=== PATIENT | male | born 1960 | race Caucasian/White ===

== ENCOUNTER 2023-09-26 09:38 | Day surgery (SDC) | payer OTHER, SELFPAY ==
[2023-09-24 14:31] VITALS: BMI 34.8
[2023-09-26] VITALS (7 sets, daily range): BP systolic 115–138; BP diastolic 63–84; PULSE 50–60; RESP 10–17; TEMP 36.2–36.7; O2SAT 94–97; BMI 34.8
[2023-09-26] MEDS: LACTATED RINGERS 1,000 ML 42 ML IV (10:09)
[2023-09-26] MEDS: ALBUTEROL/IPRATROPIUM 3 ML AMPUL INH (10:45)
--- NOTE | 2023-09-26 11:13 | P.HP_ITS ---
History of Present Illness History of Present Illness Date Patient Seen: 09/26/23 Time Patient Seen: 11:[address] [facility] [place] 63 y.o man here for elective umbilical hernia repair. No interval changes in health, please refer to H&P from May for further detail. [facility] Medical History GERD (gastroesophageal reflux disease) Asthma Surgical History Total knee replacement status (~2014) H/O shoulder surgery (~2002) Social History marital status: household members: spouse lives independently: Yes occupational status: previously employed Smoking Status: Never smoker alcohol intake: current substance use type: does not use Meds Home Medications and Allergies Home Medications Medication Instructions Recorded Confirmed Type albuterol sulfate 1 puff inhalation PRN PRN 05/31/23 09/24/23 History Shortness Of Breath fluticasone 250 mcg-salmeterol 50 1 inh inhalation BID 05/31/23 09/26/23 History mcg/dose blistr powdr for inhalation (Advair Diskus) Allergies Allergy/AdvReac Type Severity Reaction Status Date / Time MORPHINE AdvReac Mild Doesn't Uncoded 05/31/23 13:49 like it... feel out of body Exam Vital Signs (past 8 hours): - 09/26/23 09:46 Temperature 98.1 F Pulse Rate 60 Respiratory Rate 16 Blood Pressure 130/80 Pulse Oximetry 97 Oxygen Delivery Method Room Air Oxygen Delivery Method Room Air Narrative Exam Narrative: General adult man alert oriented no acute distress Abdomen soft reducible umbilical hernia Assessment & Plan Assessment and plan (1) Umbilical hernia: Qualifiers: Obstruction and gangrene presence: without obstruction or gangrene Qualified Code(s): K42.9 - Umbilical hernia without obstruction or gangrene Status: Acute Assessment & Plan narrative: 63-year-old man for an elective open hernia repair with mesh. Overview of the operation discussed. Operative risks including hemorrhage, infection, recurrence were discussed. Questions have been answered he is in agreement with this plan. He provides his written and verbal consent to proceed.
[2023-09-26] MEDS: CEFAZOLIN 2 GM/100 ML PREMIX 100 ML IV (11:30)
--- NOTE | 2023-09-26 11:51 | SUR.OPER ---
Supine on padded OR bed, head on pillow, arms secured on padded arm boards at <90 degrees abduction, legs uncrossed, safety belt at thigh, tape over blanket over lower legs.
[2023-09-26] MEDS: BUPIVACAINE 0.25% (PF) VIAL 30 ML INJ (11:56)
[2023-09-26] MEDS: ONDANSETRON 4 MG/2 ML INJ IV (13:07)
[2023-09-26] MEDS: OXYCODONE IR 5 MG TABLET PO (13:08)
--- NOTE | 2023-09-26 18:17 | P.OP_ITS ---
Operative Date/Time/Diagnoses Date of procedure: 09/26/23 Time of procedure: 18:18 Pre-op diagnosis: Umbilical hernia Post-op diagnosis: same Procedure & Clinicians Procedure: Open umbilical hernia repair. Same procedure as scheduled: Yes Indications: symptomatic reducible umbilical hernia. Surgeon: Bernabe Simmons Click Yes if Unassisted: Yes Operative Notes Findings: 3 cm fascial defect containing bowel Specimen(s): none sent Estimated Blood Loss (mL): 20 Procedure in detail: Patient was brought to the operating room placed supine on the table. Bilateral lower extremity compression devices were applied. General anesthesia was induced and they were intubated with an endotracheal tube. They received 2 g of Ancef prior to skin incision. They were prepped and draped in sterile fashion. A time-out was performed. A curvilinear incision was made inferior to the umbilicus. The subcutaneous tissues were divided. The umbilical hernia was identified and the hernia sac was dissected off the umbilical skin and circumferentially off of the fascia defect. The hernia sac was sharply opened and contained viable small bowel. Using blunt dissection I carefully carefully freed the hernia sac from beneath the fascia defect in order to accomodate the mesh. The fascia defect was 3 cm in maximal diameter. A Bard Ventralex ST hernia patch 6.4 cm was inserted beneath the fascia defect and above the peritoneum in a sublay position. The mesh was anchored in multiple locations using Ethibond suture to the fascia and the fascial defect was closed over the mesh. The umbilical skin was tacked to the subcutaneous tissues and then the remainder of the subcutaneous tissues were reapproximated using 3 0 Vicry,l skin closed with 4 0 Monocryl followed by the application of Dermabond and Steri- Strips. Sponge instrument count at the end of the operation was correct. Patient tolerated procedure well was extubated and transferred to postoperative care unit in stable condition. Complications: none Post-operative Condition: stable Disposition: same day surgery
== END 2023-09-26 13:25 | disposition home or self-care (01) ==
PROVIDERS: Referring Provider Surgery; Visit Provider Surgery
PROC: (CPT 49593; principal; 2023-09-26 11:15)
DX: K42.9 Umbilical hernia without obstruction or gangrene (principal)
CPT/HCPCS: 49593; J0690; J1100; J1885; J2405; J3010

== ENCOUNTER 2024-06-30 20:05 | Emergency (ER) | payer MEDICARE, OTHER, SELFPAY ==
[2024-06-30] VITALS (9 sets, daily range): BP systolic 114–144; BP diastolic 61–82; PULSE 70–90; RESP 16–29; TEMP 37.2; O2SAT 93–97; BMI 34.8
[2024-06-30 20:33] LABS: Appearance Urine UA CLEAR; Bilirubin Urine UA 1+ (NEGATIVE); Color Urine UA YELLOW; Glucose Urine UA NEGATIVE (Negative); Ketones Urine UA TRACE (NEGATIVE); Leukocyte Esterase Urine UA NEGATIVE (NEGATIVE); Nitrite Urine UA NEGATIVE (Negative); Occult Blood Urine UA 3+ (Negative); Protein Urine UA 1+ (Negative); Specific Gravity Urine UA 1.015 (1.000-1.035); pH Urine UA 5.5 (4.5-8.0)
[2024-06-30 20:41] LABS: Bacteria Urine Few (2-10); Culture Indicated Urine Cult Not Indicated; Ictotest Urine Negative (Negative); Mucus Urine 1+ (Negative); RBC Urine 5-10/HPF (0-5/HPF); Squamous Epithelial Cell Urine 0-1 /HPF (0-5/HPF); Urine Volume 10mL (spun); WBC Urine 0-1/HPF (0-5/HPF)
--- NOTE | 2024-06-30 20:41 | DI.RAD.S_ITS ---
PROCEDURE: XR CHEST 1V INDICATIONS: DRY COUGH, FEVERS, NIGHT SWEATS X 1 WK TECHNIQUE: One view of the chest was acquired. COMPARISON: None. FINDINGS: Surgical changes and devices: None. Lungs and pleura: Lungs are clear. Right-sided small to moderate subpulmonic pleural effusion but no pneumothorax. Mediastinum: Mediastinal contours appear normal. Heart size is normal. Bones and chest wall: No suspicious bony lesions. Overlying soft tissues appear unremarkable. IMPRESSION: Blunting of the costophrenic sulcus on the right is likely due to a subpulmonic small to moderate pleural effusion. No pneumonia found. No adenopathy seen. Dictated by: Kale Baker M.D. on 06/30/2024 at 21:11 Approved by: Kale Baker M.D. on 06/30/2024 at 21:12
--- NOTE | 2024-06-30 20:41 | EKG_ITS ---
[address] [address] Test Date: 2024-06-30 Pat Name: Kobe Kerr Department: [facility] Room: Gender: Male Card Boxer: SHADY : 1960 Requested By: Order Number: [id number] Reading MD: Garcia Jefferson MD Measurements Intervals [place] Rate: 79 P: 57 DE: 154 QRS: -42 QRSD: 100 T: 32 QT: 372 QTc: 426 Interpretive Statements Normal sinus rhythm Left axis deviation Electronically Signed On 07-01-2024 7:26:14 PDT by Garcia Jefferson MD
--- NOTE | 2024-06-30 20:51 | ED_ITS ---
HPI - Male Genitourinary General Chief complaint: Urogenital-Male Stated complaint: UTI, fever Time Seen by Provider: 06/30/24 20:09 Source: patient Mode of arrival: Ambulatory History of Present Illness HPI Narrative: 64-year-old male with no reported past medical history presents for 1 week of nightly fevers and urinary frequency. Four days ago patient presented to his primary care doctor's office for an evaluation. He states that his doctor did a physical exam including a prostate exam and was told that everything seemed to be normal. Due to his urinary frequency it was presumed that he had a urinary tract infection and he was discharged on Macrobid and Pyridium. Patient states that he completed the Pyridium and is still on Macrobid, but does not really feel much better. He says that he still wakes up nightly with fevers and sweats in his still urinating frequently. He called his doctor's office today and they recommended he come to the ER for additional evaluation. Patient states that during the day he has no pain, and does not feel poorly. Related Data Home Medications Medication Instructions Recorded Confirmed albuterol sulfate 1 puff inhalation PRN PRN 05/31/23 10/04/23 Shortness Of Breath fluticasone 250 mcg-salmeterol 50 1 inh inhalation BID 05/31/23 10/04/23 mcg/dose blistr powdr for inhalation (Advair Diskus) Previous Rx's Medication Instructions Recorded acetaminophen 325 mg capsule 650 mg (2 x 325 mg) PO QID PRN 09/26/23 (Tylenol) pain #60 caps docusate sodium 100 mg capsule 100 mg PO BID #30 caps 09/26/23 (Colace) ibuprofen 200 mg tablet 400 mg (2 x 200 mg) PO Q6H #60 tabs 09/26/23 Allergies Allergy/AdvReac Type Severity Reaction Status Date / Time MORPHINE AdvReac Mild Doesn't Uncoded 06/30/24 20:13 like it... feel out of body Patient History Medical History GERD (gastroesophageal reflux disease) Asthma Surgical History Total knee replacement status (~2014) H/O shoulder surgery (~2002) Social History marital status: household members: spouse lives independently: Yes occupational status: previously employed Smoking Status: Never smoker alcohol intake: current substance use type: does not use Smoking Status: Never smoker alcohol intake frequency: 0-2 drinks per day Substance Use Type: does not use Exam Initial Vital Signs Initial Vital Signs: Vital Signs Temperature 99.0 F 06/30/24 20:07 Pulse Rate 90 06/30/24 20:07 Respiratory Rate 16 06/30/24 20:07 Blood Pressure 131/82 06/30/24 20:07 Pulse Oximetry 96 06/30/24 20:07 Oxygen Delivery Method Room Air 06/30/24 20:07 Const: Awake, alert, no acute distress, nontoxic appearing Cardiac: regular rate, regular rhythm RESP: unlabored, clear bilaterally, no wheezing GI: Soft, nontender, nondistended, no rebound, no guarding MSK: Atraumatic, full range of motion, pulses equal Skin: Warm, Dry, intact, no rashes Neuro: AO x3, CN II-XII grossly intact, moves all extremities Course Orders Ordered: ED Orders 06/30/24 22:29 CT abdomen pelvis w con Stat 07/01/24 00:07 CT chest w con Stat 07/01/24 01:09 Monotest Stat Discontinued Medications Sodium Chloride (Normal Saline 0.9%) 1,000 mls @ 1,000 mls/hr IV BOLUS ONE Stop: 06/30/24 21:39 Last Infusion: 06/30/24 22:14 Dose: Infused Documented By: Admin: 06/30/24 21:07 Dose: 1,000 mls/hr Documented By: KATELIN Sodium Chloride (Normal Saline 0.9%) 1,000 mls @ 1,000 mls/hr IV BOLUS ONE Stop: 07/01/24 01:06 Last Infusion: 07/01/24 01:23 Dose: Infused Documented By: Admin: 07/01/24 00:12 Dose: 1,000 mls/hr Documented By: MIKHAIL Vital Signs Vital signs: Vital Signs - 8 hr 06/30/24 23:00 06/30/24 23:30 07/01/24 00:30 Pulse Rate 72 75 72 Respiratory Rate 24 28 H 18 Blood Pressure Pulse Oximetry 97 95 98 Oxygen Delivery Method 07/01/24 01:00 07/01/24 01:13 07/01/24 01:13 Pulse Rate 74 80 Respiratory Rate 18 17 Blood Pressure 121/75 Pulse Oximetry 97 96 Oxygen Delivery Method Room Air MDM - Male Genitourinary Lab Data 06/30/24 21:00 06/30/24 21:00 Labs: Lab Results 06/30/24 06/30/24 06/30/24 Range/Units 20:11 21:00 21:16 WBC 8.1 (4.5-11.0) X10^3/uL RBC 4.58 (4.5-5.9) X10^6/uL Hgb 13.7 (13.5-17.5) g/dL Hct 39.7 L (41-53) % MCV 86.7 (80-100) fL MCH 29.9 (26-34) PG MCHC 34.5 (30-36) % RDW 13.1 (11.6-14.8) % Plt Count 134 L (150-400) X10^3/uL Neut % (Auto) 92.0 H (50-75) % Lymph % (Auto) 4.4 L (25-40) % [place] % (Auto) 3.0 (3-14) % Eos % (Auto) 0.4 L (2-4) % Baso % (Auto) 0.2 (0-2) % Neut # (Auto) 7400 H (5749-0887) /uL Lymph # (Auto) 400 L (0118-7735) /uL [place] # (Auto) 200 (0-900) /uL Eos # (Auto) 0 (0-450) /uL Baso # (Auto) 0 (0-100) /uL PT 15.4 H (9.4-12.5) SECONDS INR 1.3 (0.9-1.3) Sodium 130 L (137-145) mmol/L Potassium 4.3 (3.4-5.1) mmol/L Chloride 94 L (98-107) mmol/L Carbon Dioxide 30 (22-32) mmol/L BUN 32 H (9-20) mg/dL Creatinine 1.29 H (0.66-1.25) mg/dL Estimated GFR > 60 (>60) mL/min BUN/Creatinine Ratio 24.8 H (6-22) Glucose 124 H (80-110) mg/dL Lactate 1.4 (0.7-2.1) mmol/L Calcium 8.6 (8.4-10.2) mg/dL Total Bilirubin 1.3 (0.2-1.3) mg/dL AST 375 H (17-59) IU/L ALT 396 H (<50) IU/L Alkaline Phosphatase 131 H (38-126) U/L Total Creatine Kinase 165 (55-170) U/L Troponin I < 0.012 (0.01-0.034) ng/mL NT-Pro-B Natriuret Pep 198 H (<125) pg/mL Total Protein 7.0 (6.3-8.2) g/dL Albumin 3.4 L (3.5-5.0) g/dL Globulin 3.6 (1.7-4.1) g/dL Albumin/Globulin Ratio 0.9 L (1.0-2.8) Procalcitonin 62.8 H (<0.5) ng/mL Urine Color Yellow Urine Appearance Clear Urine pH 5.5 (4.5-8.0) Ur Specific [place] 1.015 (1.000-1.035) Urine Protein 1+ H (Negative) Urine Glucose (UA) Negative (Negative) g/dL Urine Ketones Trace H (NEGATIVE) Urine Occult Blood 3+ H (Negative) Urine Nitrate Negative (Negative) Urine Bilirubin 1+ H (NEGATIVE) Ur Bilirubin Confirm Negative (Negative) Urine Urobilinogen 2.0 H (0.2) E.U./dL Ur Leukocyte Esterase Negative (NEGATIVE) Urine RBC 5-10/hpf H (0-5/HPF) Urine WBC 0-1/hpf (0-5/HPF) Ur Squamous Epith Cells 0-1 /hpf (0-5/HPF) Urine Bacteria Few (2-10) H (None) Urine Mucus 1+ H (Negative) Ur Culture Indicated? Cult not indicated Vol Urine Centrifuged 10ml (spun) Chlamy pneumoniae PCR Not detected (Not Detect) Adenovirus (PCR) Not detected (Not Detect) B.parapertussis DNA PCR Not detected (Not Detecte) Coronavirus OC43 (PCR) Not detected (Not Detect) Coronavirus HKU1 (PCR) Not detected (Not Detect) Coronavirus 229E (PCR) Not detected (Not Detect) SARS-CoV-2 (PCR) Not detected (Not Detecte) Coronavirus NL63 (PCR) Not detected (Not Detect) Monoscreen Negative (Negative) Human Metapneumovir PCR Not detected (Not Detect) Influenza Type A (PCR) Not detected (Not Detect) Influenza Type B (PCR) Not detected (Not Detect) M. pneumoniae (PCR) Not detected (Not Detect) Parainfluenza 1 (PCR) Not detected (Not Detect) Parainfluenza 2 (PCR) Not detected (Not Detect) Parainfluenza 3 (PCR) Not detected (Not Detect) Parainfluenza 4 (PCR) Not detected (Not Detect) RSV (PCR) Not detected (Not Detect) Entero/Rhino (PCR) Not detected (Not Detect) Imaging Data CT scan - abdomen/pelvis: Radiologist's Impression: PROCEDURE: CT ABDOMEN PELVIS W CON INDICATIONS: elevated liver enzymes, suspected sepsis TECHNIQUE: After the administration of intravenous contrast, axial sections acquired from the lung bases to the pubic symphysis. Coronal and sagittal reformats were performed. For radiation dose reduction, the following was used: automated exposure control, adjustment of mA and/or kV according to patient size. COMPARISON: None. FINDINGS: Image quality: Diagnostic. Lower Chest: No significant findings. ABDOMEN: Liver: No solid mass. Mildly enlarged at 19.6 cm craniocaudad Gallbladder: No radiopaque gallstones or wall thickening. Biliary ducts: No biliary dilation. Pancreas: No ductal dilation. Spleen: Size is above normal limits measuring up to 13.4 cm craniocaudad. Adrenal Glands: No adrenal nodules. Kidneys and Ureters: No hydronephrosis. No solid mass. No complex renal cystic lesion which requires follow up. Stomach and Bowel: Normal colonic caliber, without significant wall thickening. Peritoneum: No abnormal intraperitoneal fluid. No free air. Ventral Wall: No significant ventral hernia. Abdominal Nodes: No retroperitoneal or mesenteric adenopathy by size criteria. Vessels: Aorta and inferior vena cava are normal in size. PELVIS: Pelvic Organs: Unremarkable. Bladder: No bladder wall thickening, accounting for underdistention. Pelvic Nodes: No enlarged lymph nodes. Miscellaneous: No inguinal hernias are seen. Normal appendix found right lower quadrant. Bones: No aggressive osseous abnormality. IMPRESSION: Mild hepatosplenomegaly. No sign of focal infection or underlying neoplasm. Source of sepsis syndrome is not identified. Dictated by: Kale Baker M.D. on 06/30/2024 at 23:48 Approved by: Kale Baker M.D. on 06/30/2024 at 23:52 CT scan - chest: Radiologist's Impression: PROCEDURE: CT CHEST W CON INDICATIONS: PERSISTENT COUGH, ELEVATED PROCAL, NEG CXR TECHNIQUE: After the administration of intravenous contrast, 5 mm thick sections acquired from the pulmonary apices to the posterior costophrenic angles. 1 mm axial lung, 5 mm thick coronal and sagittal reformats and 7 mm axial MIP were acquired. For radiation dose reduction, the following was used: automated exposure control, adjustment of mA and/or kV according to patient size. COMPARISON: [facility], CR, XR CHEST 1V, 06/30/2024, 20:47. FINDINGS: Image quality: Diagnostic. Lower Neck: No enlarged lymph nodes. Thyroid: No thyroid nodules which require sonographic follow up, per consensus guidelines. Axillae: No enlarged lymph nodes. Chest Wall: Unremarkable. Bones: Unremarkable. Lungs and Pleura: No pneumothorax or pleural effusions. No consolidation or suspicious nodules. There is blunting of the right lateral costophrenic sulcus with the curvature of the diaphragm directed cephalad and likely associated with an adhesion at the lateral lower border of the right pleural surface. Heart: Heart size is normal. No pericardial effusion. Thoracic Vessels: The aorta and pulmonary arteries demonstrate normal size. Mediastinum and Skye: No enlarged lymph nodes. Esophagus: No wall thickening. No hiatal hernia. Upper Abdomen: Visualized upper abdomen solid organs and bowel loops appear normal. IMPRESSION: No pneumonia or neoplasm found. Presumed adhesion between the lateral border of the right hemidiaphragm and the inter margin of the right lower lateral pleural space causing tenting of the diaphragm in that area cephalad to mild degree. A pleural adhesion can induce recurrent coughing. Dictated by: Kale Baker M.D. on 07/01/2024 at 0:35 Approved by: Kale Baker M.D. on 07/01/2024 at 0:37 MDM Narrative Medical decision making narrative: Well-appearing patient with 1 week of persistent symptoms despite being treated with Macrobid. He is concerned that he may continue to have a urinary tract infection and does not want it to spread to his kidneys. Hemodynamically stable, no fever on presentation, however patient states he did take ibuprofen approximately 3 hours prior to arrival. Laboratory work and imaging ordered. Laboratory work reviewed. WBC count 8.1, hemoglobin 13.7, platelet count 134, sodium 130, potassium 4.3, chloride 94, creatinine 1.29, T bili 1.3, AST 375, ALT 396, alk phos 131. Troponin undetectable, procalcitonin 62.8. Urinalysis without leukocyte esterase, no WBCs, no nitrites. Despite elevated procal no obvious source of potential infection. Patient reports a chronic cough, and CXR shows blunting of R costophrenic angle. With elevated liver enzymes and no obvious source of infection a CT of the abdomen and pelvis was ordered. CT of the abdomen and pelvis shows mild hepatosplenomegaly, uncertain etiology. Patient denies frequent alcohol use. Still no obvious source of greatly elevated procalcitonin. To assess for other occult infection a CT of chest was ordered. CT chest showed no neoplasm or pneumonia. Note made of presumed adhesion between lateral border of right hemidiaphragm and right lower lateral pleural space. When this was mentioned to the patient he states that many years ago he did have to have surgery to adhere his lung due to pneumothorax. This is likely the cause of patient's cough. All lab and imaging findings were discussed extensively with the patient. No source of patient's recurrent fevers or urinary frequency found. Blood cultures has been drawn and sent to the lab for analysis. Patient was also informed of his elevated liver enzymes. Patient is otherwise completely well appearing and no other indication for admission. Patient states that he has an appointment this week with his pcp to discuss his symptoms. A copy of CT reports and laboratory work results was printed out and given to the patient since he gets his care through [facility]. ED return precautions discussed extensively with patient. Discharge Plan Departure Patient Disposition: Home Clinical Impression: Fever of unknown origin, Elevated liver enzymes Instructions: DI for Fever (Symptom) -- Adult Activity Restrictions/Additional Instructions: Your laboratory work today showed that you have new elevation in your liver enzymes, specifically your AST and ALT. Otherwise there was no sign of infection in your chest, abdomen, or pelvis. There does not appear to be a urinary tract infection or kidney infection. Please make sure that you follow up with your primary care doctor. With this elevation in your liver enzymes make sure to avoid things that may injure your liver including alcohol and Tylenol. Make sure to stay hydrated, drink plenty of fluids. Prescriptions: No Action fluticasone propion-salmeterol [Advair Diskus] 250-50 mcg/dose blister with device 1 inh inhalation BID albuterol sulfate 1 puff inhalation PRN PRN (Reason: Shortness Of Breath) ibuprofen 200 mg tablet 400 mg PO Q6H Qty: 60 0RF docusate sodium [Colace] 100 mg capsule 100 mg PO BID Qty: 30 0RF acetaminophen [Tylenol] 325 mg capsule 650 mg PO QID PRN (Reason: pain) Qty: 60 0RF Referrals: [facility] [Primary Care Provider] - Stand Alone Forms: Patient Portal/API
[2024-06-30] MEDS: SODIUM CHLORIDE 0.9% 1,000 ML 1000 ML IV (21:07)
[2024-06-30 21:22] LABS: Add Manual Diff / Slide Review NO; Basophils Absolute Auto 0 /uL (0-100); Basophils Percent Auto 0.2 % (0-2); Eosinophils Absolute Auto 0 /uL (0-450); Eosinophils Percent Auto 0.4 % (2-4); Hematocrit 39.7 % (41-53); Hemoglobin 13.7 g/dL (13.5-17.5); Lymphocytes Absolute Auto 400 /uL (1100-4500); Lymphocytes Percent Auto 4.4 % (25-40); Mean Corpuscular HGB Conc 34.5 % (30-36); Mean Corpuscular Hemoglobin 29.9 PG (26-34); Mean Corpuscular Volume 86.7 fL (80-100); Monocytes Absolute Auto 200 /uL (0-900); Neutrophils Absolute Auto 7400 /uL (1500-7000); Platelet Count 134 X10^3/uL (150-400); Red Blood Cell Count 4.58 X10^6/uL (4.5-5.9); Red Cell Distribution Width 13.1 % (11.6-14.8); White Blood Cell Count 8.1 X10^3/uL (4.5-11.0)
[2024-06-30 21:27] LABS: INR 1.3 (0.9-1.3); Prothrombin Time 15.4 SECONDS (9.4-12.5)
[2024-06-30 21:33] LABS: Alanine Aminotransferase 396 IU/L (<50); Albumin 3.4 g/dL (3.5-5.0); Albumin Globulin Ratio 0.9 (1.0-2.8); Alkaline Phosphatase 131 U/L (38-126); Aspartate Aminotransferase 375 IU/L (17-59); BUN Creatinine Ratio 24.8 (6-22); Bilirubin Total 1.3 mg/dL (0.2-1.3); Blood Urea Nitrogen 32 mg/dL (9-20); Calcium 8.6 mg/dL (8.4-10.2); Carbon Dioxide 30 mmol/L (22-32); Chloride 94 mmol/L (98-107); Creatine Kinase 165 U/L (55-170); Estimated Glomerular Filt Rate > 60 mL/min (>60); Globulin 3.6 g/dL (1.7-4.1); Glucose 124 mg/dL (80-110); HEMOLYSIS < 15 (0-50); Lactate (Lactic Acid) 1.4 mmol/L (0.7-2.1); Potassium 4.3 mmol/L (3.4-5.1); Sodium 130 mmol/L (137-145)
[2024-06-30 21:44] LABS: NT-proBNP (BNP-Adult 18+) 198 pg/mL (<125); Troponin I < 0.012 ng/mL (0.01-0.034)
[2024-06-30 21:49] LABS: Procalcitonin 62.8 ng/mL (<0.5)
[2024-06-30 22:17] LABS: Adenovirus Not Detected (Not Detect); B. parapertussis Not Detected (Not Detecte); Bordetella pertussis Not Detected (Not Detect); Chlamydophila pneumoniae Not Detected (Not Detect); Coronavirus 229E Not Detected (Not Detect); Coronavirus HKU1 Not Detected (Not Detect); Coronavirus NL 63 Not Detected (Not Detect); Coronavirus OC43 Not Detected (Not Detect); Human Metapneumovirus Not Detected (Not Detect); Human Rhinovirus/Enterovirus Not Detected (Not Detect); Influenza A Not Detected (Not Detect); Influenza B Not Detected (Not Detect); Mycoplasma pneumoniae Not Detected (Not Detect); Parainfluenza Virus 1 Not Detected (Not Detect); Parainfluenza Virus 2 Not Detected (Not Detect); Parainfluenza Virus 3 Not Detected (Not Detect); Parainfluenza Virus 4 Not Detected (Not Detect); Respiratory Syncytial Virus Not Detected (Not Detect); SARS- CoV-2 Not Detected (Not Detecte)
--- NOTE | 2024-06-30 22:29 | DI.CT.S_ITS ---
PROCEDURE: CT ABDOMEN PELVIS W CON INDICATIONS: elevated liver enzymes, suspected sepsis TECHNIQUE: After the administration of intravenous contrast, axial sections acquired from the lung bases to the pubic symphysis. Coronal and sagittal reformats were performed. For radiation dose reduction, the following was used: automated exposure control, adjustment of mA and/or kV according to patient size. COMPARISON: None. FINDINGS: Image quality: Diagnostic. Lower Chest: No significant findings. ABDOMEN: Liver: No solid mass. Mildly enlarged at 19.6 cm craniocaudad Gallbladder: No radiopaque gallstones or wall thickening. Biliary ducts: No biliary dilation. Pancreas: No ductal dilation. Spleen: Size is above normal limits measuring up to 13.4 cm craniocaudad. Adrenal Glands: No adrenal nodules. Kidneys and Ureters: No hydronephrosis. No solid mass. No complex renal cystic lesion which requires follow up. Stomach and Bowel: Normal colonic caliber, without significant wall thickening. Peritoneum: No abnormal intraperitoneal fluid. No free air. Ventral Wall: No significant ventral hernia. Abdominal Nodes: No retroperitoneal or mesenteric adenopathy by size criteria. Vessels: Aorta and inferior vena cava are normal in size. PELVIS: Pelvic Organs: Unremarkable. Bladder: No bladder wall thickening, accounting for underdistention. Pelvic Nodes: No enlarged lymph nodes. Miscellaneous: No inguinal hernias are seen. Normal appendix found right lower quadrant. Bones: No aggressive osseous abnormality. IMPRESSION: Mild hepatosplenomegaly. No sign of focal infection or underlying neoplasm. Source of sepsis syndrome is not identified. Dictated by: Kale Baker M.D. on 06/30/2024 at 23:48 Approved by: Kale Baker M.D. on 06/30/2024 at 23:52
--- NOTE | 2024-07-01 00:07 | DI.CT.S_ITS ---
PROCEDURE: CT CHEST W CON INDICATIONS: PERSISTENT COUGH, ELEVATED PROCAL, NEG CXR TECHNIQUE: After the administration of intravenous contrast, 5 mm thick sections acquired from the pulmonary apices to the posterior costophrenic angles. 1 mm axial lung, 5 mm thick coronal and sagittal reformats and 7 mm axial MIP were acquired. For radiation dose reduction, the following was used: automated exposure control, adjustment of mA and/or kV according to patient size. COMPARISON: [facility], CR, XR CHEST 1V, 06/30/2024, 20:47. FINDINGS: Image quality: Diagnostic. Lower Neck: No enlarged lymph nodes. Thyroid: No thyroid nodules which require sonographic follow up, per consensus guidelines. Axillae: No enlarged lymph nodes. Chest Wall: Unremarkable. Bones: Unremarkable. Lungs and Pleura: No pneumothorax or pleural effusions. No consolidation or suspicious nodules. There is blunting of the right lateral costophrenic sulcus with the curvature of the diaphragm directed cephalad and likely associated with an adhesion at the lateral lower border of the right pleural surface. Heart: Heart size is normal. No pericardial effusion. Thoracic Vessels: The aorta and pulmonary arteries demonstrate normal size. Mediastinum and [place]: No enlarged lymph nodes. Esophagus: No wall thickening. No hiatal hernia. Upper Abdomen: Visualized upper abdomen solid organs and bowel loops appear normal. IMPRESSION: No pneumonia or neoplasm found. Presumed adhesion between the lateral border of the right hemidiaphragm and the inter margin of the right lower lateral pleural space causing tenting of the diaphragm in that area cephalad to mild degree. A pleural adhesion can induce recurrent coughing. Dictated by: Kale Baker M.D. on 07/01/2024 at 0:35 Approved by: Kale Baker M.D. on 07/01/2024 at 0:37
[2024-07-01] MEDS: SODIUM CHLORIDE 0.9% 1,000 ML 1000 ML IV (00:12)
[2024-07-01 00:30] VITALS: PULSE 72; RESP 18; O2SAT 98
[2024-07-01 01:00] VITALS: PULSE 74; RESP 18; O2SAT 97
[2024-07-01 01:13] VITALS: BP 121/75; PULSE 80; RESP 17; O2SAT 96
[2024-07-01 01:21] LABS: Monotest Negative (Negative)
--- NOTE | 2024-07-01 20:29 | PC.NURSE ---
received positive blood cultures for patient. Dr. Coates aware. states to call patient to see if he is still having fevers and if so to come back in. called patient, denied fevers, reports feeling alittle better, discussed with Dr. Coates patient's reports and she recommends pt be re evaluated within the next 12-24hrs. Pt states understanding and agrees to return tomorrow for reassessment.
== END 2024-07-01 01:25 | disposition home or self-care (01) ==
PROVIDERS: Emergency Provider Emergency Medicine
DX: R50.9 Fever, unspecified (principal); R74.8 Abnormal levels of other serum enzymes; R79.89 Other specified abnormal findings of blood chemistry; R07.9 Chest pain, unspecified; Z11.52 Encounter for screening for COVID-19
CPT/HCPCS: 36415; 51798; 71045; 71260; 74177; 80053; 81001; 82550; 83605; 83880; 84145; 84484; 85025; 85610; 86318; 87040; 87077; 87186; 87633; 93005; 93010; 96360; 96361; 99284; Q9967

== ENCOUNTER 2024-07-02 10:45 | Emergency (ER) | payer MEDICARE, OTHER, SELFPAY ==
[2024-07-02] VITALS (10 sets, daily range): BP systolic 111–135; BP diastolic 64–80; PULSE 62–80; RESP 14; TEMP 37.3–37.6; O2SAT 94–98; BMI 35.1
--- NOTE | 2024-07-02 10:54 | ED_ITS ---
HPI - Recheck/Abnormal Lab/Rx General Chief Complaint: Recheck/Abnormal Lab/Rx Stated Complaint: abnormal lab Time Seen by Provider: 07/02/24 10:53 Source: patient Mode of arrival: Ambulatory History of Present Illness HPI narrative: 64-year-old male here for recheck after being called in regarding positive blood culture results from recent visit in ED 2 days ago here. Patient recently seen by primary care provider, possible urinary infection, taking Macrobid oral antibiotic day 3, seen 2 days ago feeling feverish, workup included CT scanning reportedly negative, still taking Macrobid antibiotic from clinic. Subsequently blood culture from ED visit is growing Gram-negative rods, patient was informed yesterday but did not want to come last night, here for further evaluation this morning. No fevers or chills. No sweats. Denies weakness. Denies pain on urination. He denies shortness of breath or chest pain. He also denies abdominal discomfort, nausea, diarrhea. He denies headache neck pain photophobia symptoms. Related Data Home Medications Medication Instructions Recorded Confirmed albuterol sulfate 1 puff inhalation PRN PRN 05/31/23 10/04/23 Shortness Of Breath fluticasone 250 mcg-salmeterol 50 1 inh inhalation BID 05/31/23 10/04/23 mcg/dose blistr powdr for inhalation (Advair Diskus) Previous Rx's Medication Instructions Recorded acetaminophen 325 mg capsule 650 mg (2 x 325 mg) PO QID PRN 09/26/23 (Tylenol) pain #60 caps docusate sodium 100 mg capsule 100 mg PO BID #30 caps 09/26/23 (Colace) ibuprofen 200 mg tablet 400 mg (2 x 200 mg) PO Q6H #60 tabs 09/26/23 cefdinir 300 mg capsule 300 mg PO BID 10 days #20 caps 07/02/24 Allergies Allergy/AdvReac Type Severity Reaction Status Date / Time morphine Allergy Verified 07/02/24 10:49 Review of Systems Review of Systems Narrative: see HPI Patient History Medical History GERD (gastroesophageal reflux disease) Asthma Surgical History Total knee replacement status (~2014) H/O shoulder surgery (~2002) Social History marital status: household members: spouse lives independently: Yes occupational status: previously employed Smoking Status: Never smoker alcohol intake: current substance use type: does not use Smoking Status: Never smoker alcohol intake frequency: holidays/special occasions only Substance Use Type: does not use Exam Narrative Exam Narrative: GENERAL: Well-developed patient, in mild distress. HEAD: Atraumatic. Normocephalic. EYES: Pupils equal round and reactive. Extraocular motions intact. No scleral icterus. No injection or drainage. ENT: Nose without bleeding, purulent drainage. Throat without erythema, tonsillar hypertrophy or exudate. Airway patent. NECK: Trachea midline. Non tender CARDIOVASCULAR: Regular rate and rhythm without murmurs, gallops, or rubs. RESPIRATORY: Clear to auscultation. Breath sounds equal bilaterally. No wheezes, rales, or rhonchi. GASTROINTESTINAL: Abdomen soft, non-tender, nondistended. EXTREMITIES: No edema or joint tenderness. BACK: Nontender without deformity or crepitance. No flank tenderness. NEURO: AOx3. Grossly nonfocal motor exam SKIN: No rash or erythema of visible areas Initial Vital Signs Initial Vital Signs: Vital Signs Temperature 99.1 F 07/02/24 10:49 Pulse Rate 80 07/02/24 10:49 Respiratory Rate 14 07/02/24 10:49 Blood Pressure 134/75 07/02/24 10:49 Pulse Oximetry 98 07/02/24 10:49 Oxygen Delivery Method Room Air 07/02/24 10:49 Course Orders Ordered: ED Orders 07/02/24 11:25 CBC Auto Diff [Complete Blood Count AUTO DIFF] Stat CMP [Comprehensive Metabolic Panel] Stat Lactate (Lactic Acid) Stat 07/02/24 12:40 Urinalysis and Microscopic Stat Discontinued Medications Ceftriaxone Sodium 1,000 mg/ (Sodium Chloride) 100 mls @ 200 mls/hr IV NOW ONE Stop: 07/02/24 10:56 Last Infusion: 07/02/24 12:13 Dose: Infused Documented By: Admin: 07/02/24 11:44 Dose: 200 mls/hr Documented By: CTS Sodium Chloride (Normal Saline 0.9%) 1,000 mls @ 1,000 mls/hr IV BOLUS ONE Stop: 07/02/24 11:54 Last Infusion: 07/02/24 12:55 Dose: Infused Documented By: Admin: 07/02/24 11:44 Dose: 1,000 mls/hr Documented By: CTS Vital Signs Vital signs: Vital Signs - 8 hr 07/02/24 11:38 07/02/24 12:00 07/02/24 12:14 Temperature Pulse Rate 70 64 69 Blood Pressure Pulse Oximetry 97 96 Oxygen Delivery Method 07/02/24 12:14 07/02/24 12:30 07/02/24 12:31 Temperature Pulse Rate 62 Blood Pressure 112/70 111/64 Pulse Oximetry 95 Oxygen Delivery Method 07/02/24 12:31 07/02/24 13:00 07/02/24 13:00 Temperature Pulse Rate 64 62 Blood Pressure 135/80 Pulse Oximetry 95 94 Oxygen Delivery Method 07/02/24 13:30 07/02/24 13:30 07/02/24 14:00 Temperature Pulse Rate 74 78 Blood Pressure 131/79 Pulse Oximetry 96 96 Oxygen Delivery Method Room Air Room Air 07/02/24 14:00 07/02/24 14:30 Temperature 99.6 F Pulse Rate Blood Pressure 133/78 Pulse Oximetry Oxygen Delivery Method MDM - Recheck/Abnormal Lab/Rx Lab Data Attestation: I reviewed the patient's lab results. 07/02/24 11:25 07/02/24 11:25 Labs: Lab Results 07/02/24 07/02/24 Range/Units 11:25 12:40 WBC 9.0 (4.5-11.0) X10^3/uL RBC 4.31 L (4.5-5.9) X10^6/uL Hgb 12.8 L (13.5-17.5) g/dL Hct 37.9 L (41-53) % MCV 87.9 (80-100) fL MCH 29.7 (26-34) PG MCHC 33.8 (30-36) % RDW 13.7 (11.6-14.8) % Plt Count 138 L (150-400) X10^3/uL Neut % (Auto) 85.1 H (50-75) % Lymph % (Auto) 8.1 L (25-40) % [place] % (Auto) 6.1 (3-14) % Eos % (Auto) 0.3 L (2-4) % Baso % (Auto) 0.4 (0-2) % Neut # (Auto) 7700 H (0280-7521) /uL Lymph # (Auto) 700 L (9024-7257) /uL [place] # (Auto) 500 (0-900) /uL Eos # (Auto) 0 (0-450) /uL Baso # (Auto) 0 (0-100) /uL Sodium 133 L (137-145) mmol/L Potassium 4.6 (3.4-5.1) mmol/L Chloride 99 (98-107) mmol/L Carbon Dioxide 30 (22-32) mmol/L BUN 18 (9-20) mg/dL Creatinine 1.04 (0.66-1.25) mg/dL Estimated GFR > 60 (>60) mL/min BUN/Creatinine Ratio 17.3 (6-22) Glucose 113 H (80-110) mg/dL Lactate 1.4 (0.7-2.1) mmol/L Calcium 8.6 (8.4-10.2) mg/dL Total Bilirubin 0.6 (0.2-1.3) mg/dL AST 142 H (17-59) IU/L ALT 227 H (<50) IU/L Alkaline Phosphatase 98 (38-126) U/L Total Protein 6.8 (6.3-8.2) g/dL Albumin 3.3 L (3.5-5.0) g/dL Globulin 3.5 (1.7-4.1) g/dL Albumin/Globulin Ratio 0.9 L (1.0-2.8) Urine Color Yellow Urine Appearance Clear Urine pH 6.5 (4.5-8.0) Ur Specific [place] 1.015 (1.000-1.035) Urine Protein Negative (Negative) Urine Glucose (UA) Negative (Negative) g/dL Urine Ketones Negative (NEGATIVE) Urine Occult Blood Trace-intact (Negative) Urine Nitrate Negative (Negative) Urine Bilirubin Negative (NEGATIVE) Urine Urobilinogen 0.2 (0.2) E.U./dL Ur Leukocyte Esterase Negative (NEGATIVE) Urine RBC 1-5/hpf (0-5/HPF) Urine WBC 1-5/hpf (0-5/HPF) Ur Squamous Epith Cells None seen (0-5/HPF) Urine Bacteria None seen (None) Ur Culture Indicated? Cult not indicated Vol Urine Centrifuged 10ml (spun) MDM Narrative Medical decision making narrative: 64-year-old male taking oral nitrofurantoin for possible urine infection prescribed from clinic, seen 2 days ago with fevers and chills, CT imaging negative, still taking same nitrofurantoin, subsequently has blood culture growing Gram-negative rods, communicated to patient last night who agreed to come in this morning. He feels well. No fevers or chills. Afebrile, sirs screen negative. We will repeat labs. Repeat labs encouraging, white blood cell count not elevated, lactate unremarkable, serum CO2 unremarkable. IV ceftriaxone given shortly after arrival, IV fluid bolus. Case discussed with hospitalist Dr. Philippe here, who thinks patient can be discharged in treated with cefdinir as oral treatment. Patient/ agreeable with this plan, in fact have follow up arranged with their regular doctor Sunday in 2 days. Discharged home on prescription for cefdinir 10 day new course of antibiotics, follow up with PCP in 2 days, return precautions discussed. Discharge Plan Departure Patient Disposition: Home Clinical Impression: Bacteremia Activity Restrictions/Additional Instructions: Recent outpatient diagnosis of urinary tract infection, taking oral nitrofurantoin/Macrobid antibiotic, recent evaluation 2 days ago, imaging done at that time including CT scanning, blood cultures from that ER visit subsequently grew Gram-negative rods, identification and sensitivity information for those bacteria still pending at this time. You were advised to come back to the emergency department today for further evaluation. You had a reassuring set of triage vitals, and examination. Labs were sent and also were reassuring. IV ceftriaxone broader spectrum antibiotic given. Case discussed with hospitalist Dr. Philippe, who thought you can be managed as an outpatient for now, on a course of oral cefdinir antibiotic. You have close follow up with your provider in 2 days Sunday also arranged. Follow up with your provider as planned. Return to this/nearest emergency department for any change worsening symptoms or any concerns prior Prescriptions: New cefdinir 300 mg capsule 300 mg PO BID 10 Days Qty: 20 0RF No Action fluticasone propion-salmeterol [Advair Diskus] 250-50 mcg/dose blister with device 1 inh inhalation BID albuterol sulfate 1 puff inhalation PRN PRN (Reason: Shortness Of Breath) ibuprofen 200 mg tablet 400 mg PO Q6H Qty: 60 0RF docusate sodium [Colace] 100 mg capsule 100 mg PO BID Qty: 30 0RF acetaminophen [Tylenol] 325 mg capsule 650 mg PO QID PRN (Reason: pain) Qty: 60 0RF Referrals: ProviderNoble [Primary Care Provider] - Stand Alone Forms: Patient Portal/API
[2024-07-02 11:36] LABS: Add Manual Diff / Slide Review NO; Basophils Absolute Auto 0 /uL (0-100); Basophils Percent Auto 0.4 % (0-2); Eosinophils Absolute Auto 0 /uL (0-450); Eosinophils Percent Auto 0.3 % (2-4); Hematocrit 37.9 % (41-53); Hemoglobin 12.8 g/dL (13.5-17.5); Lymphocytes Absolute Auto 700 /uL (1100-4500); Lymphocytes Percent Auto 8.1 % (25-40); Mean Corpuscular HGB Conc 33.8 % (30-36); Mean Corpuscular Hemoglobin 29.7 PG (26-34); Mean Corpuscular Volume 87.9 fL (80-100); Monocytes Absolute Auto 500 /uL (0-900); Monocytes Percent Auto 6.1 % (3-14); Neutrophils Absolute Auto 7700 /uL (1500-7000); Neutrophils Percent Auto 85.1 % (50-75); Platelet Count 138 X10^3/uL (150-400); Red Blood Cell Count 4.31 X10^6/uL (4.5-5.9); Red Cell Distribution Width 13.7 % (11.6-14.8)
[2024-07-02] MEDS: cefTRIAXone 1,000 MG in SODIUM CHLORIDE 0.9% 100 ML 200 MG IV (11:44)
[2024-07-02] MEDS: SODIUM CHLORIDE 0.9% 1,000 ML 1000 ML IV (11:44)
[2024-07-02 11:54] LABS: Alanine Aminotransferase 227 IU/L (<50); Albumin 3.3 g/dL (3.5-5.0); Albumin Globulin Ratio 0.9 (1.0-2.8); Alkaline Phosphatase 98 U/L (38-126); Aspartate Aminotransferase 142 IU/L (17-59); BUN Creatinine Ratio 17.3 (6-22); Bilirubin Total 0.6 mg/dL (0.2-1.3); Blood Urea Nitrogen 18 mg/dL (9-20); Calcium 8.6 mg/dL (8.4-10.2); Carbon Dioxide 30 mmol/L (22-32); Chloride 99 mmol/L (98-107); Estimated Glomerular Filt Rate > 60 mL/min (>60); Globulin 3.5 g/dL (1.7-4.1); Glucose 113 mg/dL (80-110); HEMOLYSIS < 15 (0-50); Potassium 4.6 mmol/L (3.4-5.1); Sodium 133 mmol/L (137-145); Total Protein 6.8 g/dL (6.3-8.2)
[2024-07-02 11:55] LABS: Lactate (Lactic Acid) 1.4 mmol/L (0.7-2.1)
[2024-07-02 12:47] LABS: Appearance Urine UA CLEAR; Bilirubin Urine UA NEGATIVE (NEGATIVE); Color Urine UA YELLOW; Glucose Urine UA NEGATIVE (Negative); Ketones Urine UA NEGATIVE (NEGATIVE); Leukocyte Esterase Urine UA NEGATIVE (NEGATIVE); Nitrite Urine UA NEGATIVE (Negative); Occult Blood Urine UA TRACE-INTACT (Negative); Protein Urine UA NEGATIVE (Negative); Specific Gravity Urine UA 1.015 (1.000-1.035); Urobilinogen Urine UA 0.2 E.U./dL (0.2); pH Urine UA 6.5 (4.5-8.0)
[2024-07-02 12:55] LABS: Bacteria Urine None Seen; Culture Indicated Urine Cult Not Indicated; RBC Urine 1-5/HPF (0-5/HPF); Squamous Epithelial Cell Urine None Seen (0-5/HPF); Urine Volume 10mL (spun); WBC Urine 1-5/HPF (0-5/HPF)
== END 2024-07-02 14:33 | disposition home or self-care (01) ==
PROVIDERS: Emergency Provider Emergency Medicine
DX: R78.81 Bacteremia (principal)
CPT/HCPCS: 36415; 80053; 81001; 83605; 85025; J0696

== ENCOUNTER 2024-07-02 20:24 | Emergency (ER) | payer MEDICARE, OTHER, SELFPAY ==
[2024-07-02] VITALS (12 sets, daily range): BP systolic 101–133; BP diastolic 57–87; PULSE 64–91; RESP 18–28; TEMP 37.1–38.1; O2SAT 91–96; BMI 35.1
[2024-07-02] MEDS: SODIUM CHLORIDE 0.9% 1,000 ML 1000 ML IV (20:59)
--- NOTE | 2024-07-02 20:59 | PC.NURSE ---
Dr Coates notified of sepsis alert and updated to pt status. Verbal orders received and carried out.
[2024-07-02 21:05] LABS: Add Manual Diff / Slide Review NO; Basophils Absolute Auto 100 /uL (0-100); Basophils Percent Auto 0.7 % (0-2); Eosinophils Absolute Auto 0 /uL (0-450); Eosinophils Percent Auto 0.2 % (2-4); Hematocrit 36.7 % (41-53); Hemoglobin 12.4 g/dL (13.5-17.5); Lymphocytes Absolute Auto 900 /uL (1100-4500); Lymphocytes Percent Auto 10.4 % (25-40); Mean Corpuscular HGB Conc 33.8 % (30-36); Mean Corpuscular Hemoglobin 29.7 PG (26-34); Mean Corpuscular Volume 87.8 fL (80-100); Monocytes Absolute Auto 500 /uL (0-900); Monocytes Percent Auto 6.4 % (3-14); Neutrophils Absolute Auto 6900 /uL (1500-7000); Neutrophils Percent Auto 82.3 % (50-75); Platelet Count 157 X10^3/uL (150-400); Red Blood Cell Count 4.18 X10^6/uL (4.5-5.9); Red Cell Distribution Width 13.6 % (11.6-14.8); White Blood Cell Count 8.4 X10^3/uL (4.5-11.0)
[2024-07-02 21:40] LABS: Alanine Aminotransferase 186 IU/L (<50); Albumin 3.2 g/dL (3.5-5.0); Albumin Globulin Ratio 0.9 (1.0-2.8); Alkaline Phosphatase 102 U/L (38-126); Aspartate Aminotransferase 105 IU/L (17-59); BUN Creatinine Ratio 14.7 (6-22); Bilirubin Total 0.6 mg/dL (0.2-1.3); Blood Urea Nitrogen 15 mg/dL (9-20); Calcium 8.6 mg/dL (8.4-10.2); Carbon Dioxide 25 mmol/L (22-32); Chloride 100 mmol/L (98-107); Estimated Glomerular Filt Rate > 60 mL/min (>60); Globulin 3.7 g/dL (1.7-4.1); Glucose 128 mg/dL (80-110); HEMOLYSIS < 15 (0-50); Potassium 4.2 mmol/L (3.4-5.1); Sodium 131 mmol/L (137-145); Total Protein 6.9 g/dL (6.3-8.2)
[2024-07-02 21:41] LABS: Lactate (Lactic Acid) 1.4 mmol/L (0.7-2.1)
[2024-07-02 21:57] LABS: Procalcitonin 16.9 ng/mL (<0.5)
--- NOTE | 2024-07-02 22:54 | ED.RECABL ---
HPI - Recheck/Abnormal Lab/Rx General Chief Complaint: Recheck/Abnormal Lab/Rx Stated Complaint: fever Time Seen by Provider: 07/02/24 20:32 Source: patient Mode of arrival: Ambulatory History of Present Illness HPI narrative: 64-year-old male presents for fever, malaise. Patient found to be bacteremic after ER visit on 06/30/2024. Patient is seen in the emergency department earlier today, laboratory work at that time showed no leukocytosis, normal lactic acid, and improved liver enzymes from previous. He was given a dose of Rocephin in the emergency department, per ED note hospitalist service declined admission at that time and patient was placed on cefdinir. Patient states that he took a dose of cefdinir tonight, but he began to run a fever again. He states that he was told that if he does not improve he should come back to the ER for evaluation. He also reports that his children has been very concerned with his health and his symptoms and encouraged him to come back out of fears that he may become septic Related Data Home Medications Medication Instructions Recorded Confirmed albuterol sulfate 1 puff inhalation PRN PRN 05/31/23 10/04/23 Shortness Of Breath fluticasone 250 mcg-salmeterol 50 1 inh inhalation BID 05/31/23 10/04/23 mcg/dose blistr powdr for inhalation (Advair Diskus) Previous Rx's Medication Instructions Recorded acetaminophen 325 mg capsule 650 mg (2 x 325 mg) PO QID PRN 09/26/23 (Tylenol) pain #60 caps docusate sodium 100 mg capsule 100 mg PO BID #30 caps 09/26/23 (Colace) ibuprofen 200 mg tablet 400 mg (2 x 200 mg) PO Q6H #60 tabs 09/26/23 cefdinir 300 mg capsule 300 mg PO BID 10 days #20 caps 07/02/24 Allergies Allergy/AdvReac Type Severity Reaction Status Date / Time morphine Allergy Verified 07/02/24 10:49 Patient History Medical History GERD (gastroesophageal reflux disease) Asthma Surgical History Total knee replacement status (~2014) H/O shoulder surgery (~2002) Social History marital status: household members: spouse lives independently: Yes occupational status: previously employed Smoking Status: Never smoker alcohol intake: current substance use type: does not use Smoking Status: Never smoker alcohol intake frequency: holidays/special occasions only Substance Use Type: does not use Exam Initial Vital Signs Initial Vital Signs: Vital Signs Temperature 100.6 F H 07/02/24 20:31 Pulse Rate 91 H 07/02/24 20:31 Respiratory Rate 28 H 07/02/24 20:31 Blood Pressure 130/87 07/02/24 20:31 Pulse Oximetry 94 07/02/24 20:31 Oxygen Delivery Method Room Air 07/02/24 20:31 Const: Awake, alert, no acute distress, nontoxic appearing Cardiac: regular rate, regular rhythm RESP: unlabored, clear bilaterally, no wheezing Skin: Warm, Dry, intact, no rashes Neuro: AO x3, CN II-XII grossly intact, moves all extremities Course Orders Ordered: ED Orders 07/02/24 20:55 Complete Blood Count AUTO DIFF Stat Comprehensive Metabolic Panel Stat Lactate (Lactic Acid) Stat Procalcitonin Stat Discontinued Medications Sodium Chloride (Normal Saline 0.9%) 1,000 mls @ 1,000 mls/hr IV BOLUS ONE Stop: 07/02/24 21:40 Last Infusion: 07/02/24 22:05 Dose: Infused Documented By: Infusion: 07/02/24 21:45 Dose: 1,000 mls/hr Documented By: Admin: 07/02/24 20:59 Dose: 1,000 mls/hr Documented By: ROLANDO Acetaminophen (Ofirmev) 1,000 mg in 100 mls @ 400 mls/hr IV NOW ONE Stop: 07/02/24 22:21 Last Admin: 07/02/24 22:19 Dose: Not Given Documented By: Vital Signs Vital signs: Vital Signs - 8 hr 07/02/24 21:09 07/02/24 21:10 07/02/24 21:10 Temperature Pulse Rate 79 77 Respiratory Rate Blood Pressure 121/77 Pulse Oximetry 95 94 Oxygen Delivery Method 07/02/24 21:30 07/02/24 21:30 07/02/24 22:00 Temperature Pulse Rate 72 78 Respiratory Rate Blood Pressure 133/77 Pulse Oximetry 96 94 Oxygen Delivery Method 07/02/24 22:01 07/02/24 22:01 07/02/24 22:15 Temperature 99.8 F H Pulse Rate 76 Respiratory Rate Blood Pressure 103/68 Pulse Oximetry 94 Oxygen Delivery Method 07/02/24 22:30 07/02/24 22:30 07/02/24 23:00 Temperature Pulse Rate 65 73 Respiratory Rate 18 Blood Pressure 111/70 Pulse Oximetry 91 93 Oxygen Delivery Method 07/02/24 23:01 07/02/24 23:01 07/02/24 23:30 Temperature 98.8 F Pulse Rate 70 65 Respiratory Rate Blood Pressure 108/68 Pulse Oximetry 95 94 93 Oxygen Delivery Method Room Air 07/02/24 23:31 07/02/24 23:31 07/03/24 00:02 Temperature 98.8 F Pulse Rate 64 78 Respiratory Rate 18 18 Blood Pressure 101/57 L 110/65 Pulse Oximetry 94 95 Oxygen Delivery Method Room Air MDM - Recheck/Abnormal Lab/Rx Lab Data 07/02/24 20:55 07/02/24 20:55 Labs: Lab Results 07/02/24 Range/Units 20:55 WBC 8.4 (4.5-11.0) X10^3/uL RBC 4.18 L (4.5-5.9) X10^6/uL Hgb 12.4 L (13.5-17.5) g/dL Hct 36.7 L (41-53) % MCV 87.8 (80-100) fL MCH 29.7 (26-34) PG MCHC 33.8 (30-36) % RDW 13.6 (11.6-14.8) % Plt Count 157 (150-400) X10^3/uL Neut % (Auto) 82.3 H (50-75) % Lymph % (Auto) 10.4 L (25-40) % [place] % (Auto) 6.4 (3-14) % Eos % (Auto) 0.2 L (2-4) % Baso % (Auto) 0.7 (0-2) % Neut # (Auto) 6900 (5044-8279) /uL Lymph # (Auto) 900 L (5281-0883) /uL [place] # (Auto) 500 (0-900) /uL Eos # (Auto) 0 (0-450) /uL Baso # (Auto) 100 (0-100) /uL Sodium 131 L (137-145) mmol/L Potassium 4.2 (3.4-5.1) mmol/L Chloride 100 (98-107) mmol/L Carbon Dioxide 25 (22-32) mmol/L BUN 15 (9-20) mg/dL Creatinine 1.02 (0.66-1.25) mg/dL Estimated GFR > 60 (>60) mL/min BUN/Creatinine Ratio 14.7 (6-22) Glucose 128 H (80-110) mg/dL Lactate 1.4 (0.7-2.1) mmol/L Calcium 8.6 (8.4-10.2) mg/dL Total Bilirubin 0.6 (0.2-1.3) mg/dL AST 105 H (17-59) IU/L ALT 186 H (<50) IU/L Alkaline Phosphatase 102 (38-126) U/L Total Protein 6.9 (6.3-8.2) g/dL Albumin 3.2 L (3.5-5.0) g/dL Globulin 3.7 (1.7-4.1) g/dL Albumin/Globulin Ratio 0.9 L (1.0-2.8) Procalcitonin 16.9 H (<0.5) ng/mL MDM Narrative Medical decision making narrative: Patient with Gram-negative bacteremia presenting for fever. Patient is seen less than 12 hours ago in our emergency department after being called back for positive blood cultures. He has already received a broad-spectrum antibiotic and started on cefdinir. Patient did have low-grade temperature on arrival with T-max 100.6? F. Repeat laboratory work shows improvement even from previous. Liver enzymes continued to down trend towards normal. Procalcitonin today 17, down from 63 just 2 days prior. Fever decreased with medications. Hemodynamically stable. Patient counseled on timing of antibiotics and length of time to determine failure of therapy. Patient and reassured. Patient has upcoming appointment with PCP in just 2 days, and in addition blood cultures are pending, we will reach out to patient once identification and sensitivities return if patient needs to be on different antibiotic. Encouraged ibuprofen and low-dose tylenol for fever control at home. Discharge Plan Departure Patient Disposition: Home Clinical Impression: Fever Instructions: DI for Fever (Symptom) -- Adult Activity Restrictions/Additional Instructions: Your laboratory work today indicates that you are already improving. Your liver enzymes are returning to normal, and the procalcitonin level that we measured today is significantly decreased (63 on 06/30, 19 today), indicating that you are being treated appropriately. Continue the cefdinir. Prescriptions: No Action fluticasone propion-salmeterol [Advair Diskus] 250-50 mcg/dose blister with device 1 inh inhalation BID albuterol sulfate 1 puff inhalation PRN PRN (Reason: Shortness Of Breath) cefdinir 300 mg capsule 300 mg PO BID 10 Days Qty: 20 0RF ibuprofen 200 mg tablet 400 mg PO Q6H Qty: 60 0RF docusate sodium [Colace] 100 mg capsule 100 mg PO BID Qty: 30 0RF acetaminophen [Tylenol] 325 mg capsule 650 mg PO QID PRN (Reason: pain) Qty: 60 0RF Referrals: Provider[facility] [Primary Care Provider] - Stand Alone Forms: Patient Portal/API
[2024-07-03 00:02] VITALS: BP 110/65; PULSE 78; RESP 18; TEMP 37.1; O2SAT 95
== END 2024-07-03 00:03 | disposition home or self-care (01) ==
PROVIDERS: Emergency Provider Emergency Medicine
DX: R50.9 Fever, unspecified (principal); R78.81 Bacteremia
CPT/HCPCS: 36415; 80053; 81001; 83605; 84145; 85025; 96361; 96365; 99284; J0696

== ENCOUNTER 2024-07-19 19:33 | Inpatient (IN) | payer MEDICARE, OTHER, SELFPAY ==
[2024-07-19 19:41] VITALS: BP 139/94; PULSE 84; RESP 16; TEMP 37; O2SAT 97; BMI 33.6
--- NOTE | 2024-07-19 19:53 | ED_ITS ---
HPI - Recheck/Abnormal Lab/Rx General Chief Complaint: Recheck/Abnormal Lab/Rx Stated Complaint: abnormal labs, sent by MD Time Seen by Provider: 07/19/24 19:52 Source: patient Mode of arrival: Ambulatory History of Present Illness HPI narrative: 64-year-old male here for evaluation of recurrent/persistant gram negative ananth bacteremia, called by his PCP to be evaluated and admitted. Patient had been treated initially by PCP for possible urinary tract infection with Macrobid antibiotic, seen ED here 9 12 22 with fever, blood cultures from that visit subsequently grew Gram-negative rods, E coli, sensitive to nitrofurantoin, he was called back in and evaluated 9 24 here, looked well, labs reassuring, received IV ceftriaxone and switched from Macrobid to cefdinir 10 day course of antibiotic, case was presented to hospitalist at that time who did not think patient need to be admitted, patient was agreeable for outpatient treatment. Patient completed the 10 day course of oral cefdinir antibiotic after fevers few days Macrobid, last cefdinir dose he believes was 8 days ago. He went to lab [facility] for repeat follow up clinic evaluation, no blood culture was sent from that evaluation. He saw PCP yesterday in clinic, was told that they labs looked okay, blood culture was subsequently sent, apparently a single site blood culture draw. Apparently that blood culture has subsequently grown Gram- negative ananth, PCP contacted the patient to be further evaluated here. Patient reports feeling a little bit feverish, temperature 100-101 at home. He denies any chest discomfort. He has low back pain that he attributes to recent stretching and physical activity, no discomfort in right or left flank area. He denies headache. He denies neck pain. He denies photophobia. He denies shortness of breath. He denies frequency of urination and dysuria with urination. He has no right upper quadrant abdominal discomfort, no pain with eating. He has no recent nausea or vomiting or diarrhea. No black or red stools. Stools unremarkable. Related Data Previous Rx's Medication Instructions Recorded acetaminophen 325 mg capsule 650 mg (2 x 325 mg) PO QID PRN 09/26/23 (Tylenol) pain #60 caps ibuprofen 200 mg tablet 400 mg (2 x 200 mg) PO Q6H #60 tabs 09/26/23 Allergies Allergy/AdvReac Type Severity Reaction Status Date / Time morphine Allergy Verified 07/19/24 19:51 Review of Systems Review of Systems Narrative: see HPI Patient History Medical History GERD (gastroesophageal reflux disease) Asthma Surgical History Total knee replacement status (~2014) H/O shoulder surgery (~2002) Social History marital status: household members: spouse lives independently: Yes occupational status: previously employed Smoking Status: Never smoker alcohol intake: current substance use type: does not use Smoking Status: Never smoker alcohol intake frequency: holidays/special occasions only Substance Use Type: does not use Exam Narrative Exam Narrative: GENERAL: Well-developed patient, in mild distress. HEAD: Atraumatic. Normocephalic. EYES: Pupils equal round and reactive. Extraocular motions intact. No scleral icterus. No injection or drainage. ENT: Nose without bleeding, purulent drainage. Throat without erythema, tonsillar hypertrophy or exudate. Airway patent. NECK: Trachea midline. Non tender CARDIOVASCULAR: Regular rate and rhythm without murmurs, gallops, or rubs. RESPIRATORY: Clear to auscultation. Breath sounds equal bilaterally. No wheezes, rales, or rhonchi. GASTROINTESTINAL: Abdomen soft, non-tender, nondistended. EXTREMITIES: No edema or joint tenderness. BACK: Nontender without deformity or crepitance. No flank tenderness. NEURO: AOx3. Grossly nonfocal neuro exam SKIN: No rash or erythema of visible areas Initial Vital Signs Initial Vital Signs: Vital Signs Temperature 98.6 F 07/19/24 19:41 Pulse Rate 84 07/19/24 19:41 Respiratory Rate 16 07/19/24 19:41 Blood Pressure 139/94 H 07/19/24 19:41 Pulse Oximetry 97 07/19/24 19:41 Oxygen Delivery Method Room Air 07/19/24 19:41 Course Orders Ordered: ED Orders 07/19/24 20:10 Blood Culture Stat CBC Auto Diff [Complete Blood Count AUTO DIFF] Stat CMP [Comprehensive Metabolic Panel] Stat Lactate (Lactic Acid) Stat 07/19/24 20:20 CT abdomen pelvis w con Stat 07/19/24 22:00 Urinalysis and Microscopic Stat Acetaminophen (Acetaminophen 325 Mg Tablet) 650 mg PO Q6H PRN PRN Reason: Fever/Mild Pain (1-3) Sodium Chloride (Normal Saline 0.9%) 1,000 mls @ 100 mls/hr IV CONT TAHIRA Last Admin: 07/20/24 00:10 Dose: 100 mls/hr Documented By: AT Piperacillin Sod/Tazobactam (Sod 3.375 gm/ Sodium Chloride) 100 mls @ 25 mls/hr IV Q8H TAHIRA Naloxone HCl (Naloxone 0.4 Mg/Ml Vial) 0.2 mg IV Q2MIN PRN PRN Reason: Opiate Reversal Ondansetron HCl (Ondansetron 4 Mg/2 Ml Inj) 4 mg IV Q8HR PRN PRN Reason: Nausea And Vomiting Discontinued Medications Sodium Chloride (Normal Saline 0.9%) 1,000 mls @ 1,000 mls/hr IV BOLUS ONE Stop: 07/19/24 21:19 Last Infusion: 07/19/24 21:28 Dose: Infused Documented By: Admin: 07/19/24 20:28 Dose: 1,000 mls/hr Documented By: AB Piperacillin Sod/Tazobactam (Sod 4.5 gm/ Sodium Chloride) 100 mls @ 200 mls/hr IV NOW ONE Stop: 07/19/24 22:55 Last Infusion: 07/19/24 23:40 Dose: Infused Documented By: Admin: 07/19/24 23:06 Dose: 200 mls/hr Documented By: Vital Signs Vital signs: Vital Signs - 8 hr 07/19/24 19:41 07/19/24 22:03 07/19/24 22:05 Temperature 98.6 F Pulse Rate 84 82 81 Respiratory Rate 16 Blood Pressure 139/94 H Pulse Oximetry 97 94 96 Oxygen Delivery Method Room Air 07/19/24 22:05 07/19/24 22:30 07/19/24 22:30 Temperature Pulse Rate 76 Respiratory Rate Blood Pressure 132/78 122/79 Pulse Oximetry 94 Oxygen Delivery Method MDM - Recheck/Abnormal Lab/Rx Lab Data Attestation: I reviewed the patient's lab results. 07/19/24 20:10 07/19/24 20:10 Labs: Lab Results 07/19/24 07/19/24 Range/Units 20:10 22:00 WBC 6.6 (4.5-11.0) X10^3/uL RBC 4.35 L (4.5-5.9) X10^6/uL Hgb 12.8 L (13.5-17.5) g/dL Hct 37.9 L (41-53) % MCV 87.2 (80-100) fL MCH 29.5 (26-34) PG MCHC 33.8 (30-36) % RDW 13.9 (11.6-14.8) % Plt Count 297 (150-400) X10^3/uL Neut % (Auto) 68.3 (50-75) % Lymph % (Auto) 20.4 L (25-40) % [place] % (Auto) 9.6 (3-14) % Eos % (Auto) 1.2 L (2-4) % Baso % (Auto) 0.5 (0-2) % Neut # (Auto) 4500 (6463-3465) /uL Lymph # (Auto) 1300 (3275-2097) /uL [place] # (Auto) 600 (0-900) /uL Eos # (Auto) 100 (0-450) /uL Baso # (Auto) 0 (0-100) /uL Sodium 137 (137-145) mmol/L Potassium 4.4 (3.4-5.1) mmol/L Chloride 97 L (98-107) mmol/L Carbon Dioxide 33 H (22-32) mmol/L BUN 19 (9-20) mg/dL Creatinine 0.92 (0.66-1.25) mg/dL Estimated GFR > 60 (>60) mL/min BUN/Creatinine Ratio 20.7 (6-22) Glucose 100 (80-110) mg/dL Lactate 1.1 (0.7-2.1) mmol/L Calcium 9.2 (8.4-10.2) mg/dL Total Bilirubin 0.5 (0.2-1.3) mg/dL AST 35 (17-59) IU/L ALT 43 (<50) IU/L Alkaline Phosphatase 47 (38-126) U/L Total Protein 7.9 (6.3-8.2) g/dL Albumin 3.8 (3.5-5.0) g/dL Globulin 4.1 (1.7-4.1) g/dL Albumin/Globulin Ratio 0.9 L (1.0-2.8) Urine Color Yellow Urine Appearance Clear Urine pH 5.5 (4.5-8.0) Ur Specific [place] <=1.005 (1.000-1.035) Urine Protein Negative (Negative) Urine Glucose (UA) Negative (Negative) g/dL Urine Ketones Negative (NEGATIVE) Urine Occult Blood Negative (Negative) Urine Nitrate Negative (Negative) Urine Bilirubin Negative (NEGATIVE) Urine Urobilinogen 0.2 (0.2) E.U./dL Ur Leukocyte Esterase Negative (NEGATIVE) Urine RBC None seen (0-5/HPF) Urine WBC None seen (0-5/HPF) Ur Squamous Epith Cells None seen (0-5/HPF) Urine Bacteria None seen (None) Ur Culture Indicated? Cult not indicated Vol Urine Centrifuged 10ml (spun) Imaging Data CT scan - abdomen/pelvis: Radiologist's Impression: [address] [address] [address] Scan Report Signed Patient: Kobe Kerr MR#: [id number] : 1960 Acct:[id number] Age/Sex: 64 / M Date of Service: 07/19/24 Loc: ED Accession Number: [id number] Procedure: CT abdomen pelvis w con Ordering Provider: Jostin Hope MD PROCEDURE: CT ABDOMEN PELVIS W CON INDICATIONS: GNR bacteremia TECHNIQUE: After the administration of intravenous contrast, axial sections acquired from the lung bases to the pubic symphysis. Coronal and sagittal reformats were performed. For radiation dose reduction, the following was used: automated exposure control, adjustment of mA and/or kV according to patient size. COMPARISON: [facility], CT, CT ABDOMEN PELVIS W CON, 06/30/2024, 22:50. FINDINGS: Lower thorax: The lung bases are clear. Heart size normal. Small hiatal hernia noted. Liver: Normal in size and attenuation. No contour deformity present. Biliary system: No calcified cholelithiasis or pericholecystic inflammation. No intra or extrahepatic bile duct dilatation. Pancreas: Unremarkable without mass or inflammation evident. Spleen: Normal in size and density. Adrenals: Normal morphology and density. Reproductive system: Unremarkable as visualized. Urinary system: Normal renal size and attenuation. No renal calculi, hydronephrosis, or solid mass present. Urinary bladder unremarkable. Gastrointestinal system: The bowel is unremarkable without evidence of bowel obstruction or inflammation. The stomach appears unremarkable. Moderate fecal debris in the right colon Appendix: Normal appendix identified. No evidence of appendicitis. Peritoneal spaces: No mesenteric or retroperitoneal adenopathy. No free air. No free fluid. Vasculature: The IVC, aorta and iliac vasculature are unremarkable. Abdominal wall: Abdominal wall intact without evidence of ventral or inguinal hernias. Musculoskeletal: Normal bone mineralization. No acute fractures. IMPRESSION: Moderate fecal debris in the right colon without obstruction. No acute CT findings in the abdomen pelvis. No abscess or source of infection Approved by: Raymon Esteves M.D. on 07/19/2024 at 20:29 MDM Narrative Medical decision making narrative: 64-year-old male with gram-negative bacteremia had been treated for urinary tract infection initially with Macrobid late May 2024, was seen in the emergency department on Macrobid feeling feverish on 06/30/24, CT abdomen and pelvis at that visit showed no acute changes, continued on same Macrobid regimen, presented with positive blood cultures 07/02/2024, given Rocephin then switch to oral cefdinir 10 day course treated as outpatient, which was completed 8 days ago, subsequently saw his doctor yesterday, still feeling feverish with 100-101F measured home temperatures, [facility] single blood culture sent yesterday that is growing Gram-negative ananth. Sent here per phone call from PCP for admission. Will send repeat labs. Will evaluate for complicated UTI with CT imaging, patient agreeable New set of blood cultures x2 sent here, apparently a single set of blood culture was sent from [facility] yesterday. IV ceftriaxone dose here for now. Micro lab review: 06/30/24 blood culture showed E coli species that was resistant to ampicillin and Septra at that time, otherwise sensitive to other antibiotics tested including cephalosporins and Zosyn and fluoroquinolones and aminoglycoside. CT abdomen and pelvis ordered. CT abdomen and pelvis shows no acute urinary or other abdominopelvic findings, stool burden noted. See radiology report. PCP and patient anticipate admission, will consult hospitalist. 2300, case discussed with hospitalist Dr. Krueger, requests non cephalosporin antibiotic be started, IV Zosyn ordered, agrees with repeat blood cultures sent from here, accepts patient for admission to inpatient Critical Care Time Critical Care Time Critical Care Time: Yes Total Critical Care Time: 35 Attestation: The high probability of a clinically significant, sudden or life threatening deterioration of the [abdominopelvic, genitourinary,] system(s) required my full and direct attention, intervention and personal management. The aggregate critical care time was [35] minutes. This time is in addition to time spent performing reported procedures but includes the following: [x] Data Review and interpretation [x] Patient assessment and monitoring of vital signs [x] Documentation [x] Medication orders and management Discharge Plan Departure Patient Disposition: Admitted As Inpatient Clinical Impression: Bacteremia, History of UTI Admit Date/Time: 07/19/24 22:58 Admit Provider: Aaron Krueger
--- NOTE | 2024-07-19 20:20 | DI.CT.S_ITS ---
PROCEDURE: CT ABDOMEN PELVIS W CON INDICATIONS: GNR bacteremia TECHNIQUE: After the administration of intravenous contrast, axial sections acquired from the lung bases to the pubic symphysis. Coronal and sagittal reformats were performed. For radiation dose reduction, the following was used: automated exposure control, adjustment of mA and/or kV according to patient size. COMPARISON: [facility], CT, CT ABDOMEN PELVIS W CON, 06/30/2024, 22:50. FINDINGS: Lower thorax: The lung bases are clear. Heart size normal. Small hiatal hernia noted. Liver: Normal in size and attenuation. No contour deformity present. Biliary system: No calcified cholelithiasis or pericholecystic inflammation. No intra or extrahepatic bile duct dilatation. Pancreas: Unremarkable without mass or inflammation evident. Spleen: Normal in size and density. Adrenals: Normal morphology and density. Reproductive system: Unremarkable as visualized. Urinary system: Normal renal size and attenuation. No renal calculi, hydronephrosis, or solid mass present. Urinary bladder unremarkable. Gastrointestinal system: The bowel is unremarkable without evidence of bowel obstruction or inflammation. The stomach appears unremarkable. Moderate fecal debris in the right colon Appendix: Normal appendix identified. No evidence of appendicitis. Peritoneal spaces: No mesenteric or retroperitoneal adenopathy. No free air. No free fluid. Vasculature: The IVC, aorta and iliac vasculature are unremarkable. Abdominal wall: Abdominal wall intact without evidence of ventral or inguinal hernias. Musculoskeletal: Normal bone mineralization. No acute fractures. IMPRESSION: Moderate fecal debris in the right colon without obstruction. No acute CT findings in the abdomen pelvis. No abscess or source of infection Approved by: Raymon Esteves M.D. on 07/19/2024 at 20:29
[2024-07-19] MEDS: SODIUM CHLORIDE 0.9% 1,000 ML 1000 ML IV (20:28)
[2024-07-19 20:30] LABS: Add Manual Diff / Slide Review NO; Basophils Absolute Auto 0 /uL (0-100); Basophils Percent Auto 0.5 % (0-2); Eosinophils Absolute Auto 100 /uL (0-450); Eosinophils Percent Auto 1.2 % (2-4); Hematocrit 37.9 % (41-53); Hemoglobin 12.8 g/dL (13.5-17.5); Lymphocytes Absolute Auto 1300 /uL (1100-4500); Lymphocytes Percent Auto 20.4 % (25-40); Mean Corpuscular HGB Conc 33.8 % (30-36); Mean Corpuscular Hemoglobin 29.5 PG (26-34); Mean Corpuscular Volume 87.2 fL (80-100); Monocytes Absolute Auto 600 /uL (0-900); Monocytes Percent Auto 9.6 % (3-14); Neutrophils Absolute Auto 4500 /uL (1500-7000); Neutrophils Percent Auto 68.3 % (50-75); Platelet Count 297 X10^3/uL (150-400); Red Blood Cell Count 4.35 X10^6/uL (4.5-5.9); Red Cell Distribution Width 13.9 % (11.6-14.8); White Blood Cell Count 6.6 X10^3/uL (4.5-11.0)
[2024-07-19 20:41] LABS: Alanine Aminotransferase 43 IU/L (<50); Albumin 3.8 g/dL (3.5-5.0); Albumin Globulin Ratio 0.9 (1.0-2.8); Alkaline Phosphatase 47 U/L (38-126); Aspartate Aminotransferase 35 IU/L (17-59); BUN Creatinine Ratio 20.7 (6-22); Bilirubin Total 0.5 mg/dL (0.2-1.3); Blood Urea Nitrogen 19 mg/dL (9-20); Calcium 9.2 mg/dL (8.4-10.2); Carbon Dioxide 33 mmol/L (22-32); Chloride 97 mmol/L (98-107); Estimated Glomerular Filt Rate > 60 mL/min (>60); Globulin 4.1 g/dL (1.7-4.1); Glucose 100 mg/dL (80-110); HEMOLYSIS < 15 (0-50); Lactate (Lactic Acid) 1.1 mmol/L (0.7-2.1); Potassium 4.4 mmol/L (3.4-5.1); Sodium 137 mmol/L (137-145); Total Protein 7.9 g/dL (6.3-8.2)
[2024-07-19 22:03] VITALS: PULSE 82; O2SAT 94
[2024-07-19 22:05] VITALS: BP 132/78; PULSE 81; O2SAT 96
[2024-07-19 22:10] LABS: Appearance Urine UA CLEAR; Bilirubin Urine UA NEGATIVE (NEGATIVE); Color Urine UA YELLOW; Glucose Urine UA NEGATIVE (Negative); Ketones Urine UA NEGATIVE (NEGATIVE); Leukocyte Esterase Urine UA NEGATIVE (NEGATIVE); Nitrite Urine UA NEGATIVE (Negative); Occult Blood Urine UA NEGATIVE (Negative); Protein Urine UA NEGATIVE (Negative); Specific Gravity Urine UA <=1.005 (1.000-1.035); Urobilinogen Urine UA 0.2 E.U./dL (0.2); pH Urine UA 5.5 (4.5-8.0)
[2024-07-19 22:16] LABS: Bacteria Urine None Seen; Culture Indicated Urine Cult Not Indicated; RBC Urine None Seen (0-5/HPF); Squamous Epithelial Cell Urine None Seen (0-5/HPF); Urine Volume 10mL (spun); WBC Urine None Seen (0-5/HPF)
[2024-07-19 22:30] VITALS: BP 122/79; PULSE 76; O2SAT 94
[2024-07-19 23:00] VITALS: BP 115/73; PULSE 76; O2SAT 96
[2024-07-19] MEDS: PIPERACILLIN/TAZO 4.5 GM in SODIUM CHLORIDE 0.9% 100 ML IV (23:06)
[2024-07-19 23:30] VITALS: BP 125/78; PULSE 67; O2SAT 95
[2024-07-20] VITALS: BMI 34.1
[2024-07-20] MEDS: SODIUM CHLORIDE 0.9% 1,000 ML 100 ML IV ×2 (00:10→19:02)
[2024-07-20 00:24] VITALS: BP 134/88; PULSE 76; RESP 18; TEMP 36.5; O2SAT 98
--- NOTE | 2024-07-20 03:40 | P.HP_ITS ---
History of Present Illness History of Present Illness Chief complaint: abnormal labs, sent by Narrative: 64 year old male with past medical history of GERD and asthma was sent here from his PCP for concerning of ongoing bacteremia. Per the patient's report, the patient initially was diagnosed with UTI about a month ago and was treated with Bactrim. However, the patient was still having fever and presented to our ER on 06/30/24 and came back 07/02/24 due to postiive BCx growing GNRs. The patient was sent home on Cefdinir for 10 days due to cultures shows sensitivity to cephalosporin and to follow up with PCP. However, the patient was seen again by PCP yesterdy with still positive blood culture and was sent back to our ER. The patient reports that he is still having some low grade fever at home but denies any dysuria, suprapubic/flank pain, coughing, diarrhea, nausea, vomiting, chest pain or rash. Patient also complains of some mucsle spasm in his lower back two days ago. In our ER, the patient has no sign of sepsis and was hemodynamically stable. CT abdomin pelvic shows no acute findings. Repeat UA was negative. Due to concern of resistent GNRs bacteremia, the patient was started on Zosyn and request for admisison. [facility] Medical History GERD (gastroesophageal reflux disease) Asthma Surgical History Total knee replacement status (~2014) H/O shoulder surgery (~2002) Social History marital status: household members: spouse lives independently: Yes occupational status: previously employed Smoking Status: Never smoker alcohol intake: current substance use type: does not use Meds Home Medications and Allergies Home Medications Medication Instructions Recorded Confirmed Type acetaminophen 325 mg capsule 650 mg (2 x 325 mg) PO QID PRN 09/26/23 07/20/24 Rx (Tylenol) pain #60 caps ibuprofen 200 mg tablet 400 mg (2 x 200 mg) PO Q6H #60 tabs 09/26/23 07/20/24 Rx Allergies Allergy/AdvReac Type Severity Reaction Status Date / Time morphine Allergy Verified 07/19/24 19:51 Review of Systems Review of Systems Narrative: 12 points of ROS are negative except for what was mentioned per HPI. Exam Vital Signs (past 8 hours): - 07/19/24 19:41 07/19/24 22:03 07/19/24 22:05 Temperature 98.6 F Pulse Rate 84 82 81 Respiratory Rate 16 Blood Pressure 139/94 H Pulse Oximetry 97 94 96 Oxygen Delivery Method Room Air Oxygen Flow Rate 07/19/24 22:05 07/19/24 22:30 07/19/24 22:30 Temperature Pulse Rate 76 Respiratory Rate Blood Pressure 132/78 122/79 Pulse Oximetry 94 Oxygen Delivery Method Oxygen Flow Rate 07/19/24 23:00 07/19/24 23:00 07/19/24 23:30 Temperature Pulse Rate 76 67 Respiratory Rate Blood Pressure 115/73 Pulse Oximetry 96 95 Oxygen Delivery Method Room Air Oxygen Flow Rate 07/19/24 23:30 07/20/24 00:17 07/20/24 00:24 Temperature 97.7 F Pulse Rate 76 Respiratory Rate 18 Blood Pressure 125/78 134/88 Pulse Oximetry 98 Oxygen Delivery Method Room Air Oxygen Flow Rate 0 Oxygen Delivery Method Room Air Oxygen Flow Rate 0 Narrative Exam Narrative: GENERAL: The patient is not in any acute distressed. Awake and alert. HEENT: Nonicteric sclerae, PERRLA, EOMI. Oropharynx clear. Moist mucous membranes. Conjunctivae appear well perfused. HEART: Regular rate and rhythm without murmurs. No lower extremities edema. LUNGS: Clear to auscultation bilaterally. No wheezing, crackles or rhonchi ABDOMEN: Soft, positive bowel sounds, nontender. SKIN: No rash, no excessive bruising, petechiae, or purpura. NEUROLOGIC: AxO x 3. Cranial nerves II-XII intact without motor/sensory deficit. Objective Labs 07/19/24 20:10 07/19/24 20:10 Labs: Laboratory Results - last 24 hr 07/19/24 07/19/24 20:10 22:00 WBC 6.6 RBC 4.35 L Hgb 12.8 L Hct 37.9 L MCV 87.2 MCH 29.5 MCHC 33.8 RDW 13.9 Plt Count 297 Neut % (Auto) 68.3 Lymph % (Auto) 20.4 L [place] % (Auto) 9.6 Eos % (Auto) 1.2 L Baso % (Auto) 0.5 Neut # (Auto) 4500 Lymph # (Auto) 1300 [place] # (Auto) 600 Eos # (Auto) 100 Baso # (Auto) 0 Sodium 137 Potassium 4.4 Chloride 97 L Carbon Dioxide 33 H BUN 19 Creatinine 0.92 Estimated GFR > 60 BUN/Creatinine Ratio 20.7 Glucose 100 Lactate 1.1 Calcium 9.2 Total Bilirubin 0.5 AST 35 ALT 43 Alkaline Phosphatase 47 Total Protein 7.9 Albumin 3.8 Globulin 4.1 Albumin/Globulin Ratio 0.9 L Urine Color Yellow Urine Appearance Clear Urine pH 5.5 Ur Specific [place] <=1.005 Urine Protein Negative Urine Glucose (UA) Negative Urine Ketones Negative Urine Occult Blood Negative Urine Nitrate Negative Urine Bilirubin Negative Urine Urobilinogen 0.2 Ur Leukocyte Esterase Negative Urine RBC None seen Urine WBC None seen Ur Squamous Epith Cells None seen Urine Bacteria None seen Ur Culture Indicated? Cult not indicated Vol Urine Centrifuged 10ml (spun) Assessment & Plan Assessment & Plan narrative: Recurrent/persistent GNRs bacteremia. Admit to medical inpatient. Note patient is hemodynamically stable without sign of sepsis. CT abdomen with contrast shows no acute findings or source of infection. s/p outpatient Cefidinir course. Will switch to IV Zosyn while awaiting new two sets of blood culture. No clear source other than recent UTI. Asthma. No sign of exacerbation. prn Inhalers if needed. GERD. PPI DVT PPx hep SQ Code status full code Disposition home in 3 days Time-Based Coding :: [TOTAL MINUTES] spent with patient and on the chart (including review of chart, obtaining history, exam, reviewing outside data, placing orders, documenting exam and treatment plan, and counseling patient) on [DATE].
[2024-07-20] MEDS: PIPERACILLIN/TAZO 3.375 GM in SODIUM CHLORIDE 0.9% 100 ML IV ×3 (04:06→19:37)
[2024-07-20] MEDS: ACETAMINOPHEN 325 MG TABLET 650 MG PO ×3 (04:11→21:01)
[2024-07-20 05:10] LABS: Add Manual Diff / Slide Review NO; Basophils Absolute Auto 0 /uL (0-100); Basophils Percent Auto 0.6 % (0-2); Eosinophils Absolute Auto 0 /uL (0-450); Eosinophils Percent Auto 0.7 % (2-4); Hematocrit 34.6 % (41-53); Hemoglobin 11.5 g/dL (13.5-17.5); Lymphocytes Absolute Auto 1500 /uL (1100-4500); Lymphocytes Percent Auto 24.2 % (25-40); Mean Corpuscular HGB Conc 33.4 % (30-36); Mean Corpuscular Hemoglobin 29.2 PG (26-34); Mean Corpuscular Volume 87.5 fL (80-100); Monocytes Absolute Auto 700 /uL (0-900); Monocytes Percent Auto 12.1 % (3-14); Neutrophils Absolute Auto 3900 /uL (1500-7000); Neutrophils Percent Auto 62.4 % (50-75); Platelet Count 281 X10^3/uL (150-400); Red Blood Cell Count 3.95 X10^6/uL (4.5-5.9); Red Cell Distribution Width 13.5 % (11.6-14.8); White Blood Cell Count 6.2 X10^3/uL (4.5-11.0)
[2024-07-20 05:30] LABS: Alanine Aminotransferase 34 IU/L (<50); Albumin 3.4 g/dL (3.5-5.0); Albumin Globulin Ratio 1.1 (1.0-2.8); Alkaline Phosphatase 41 U/L (38-126); Aspartate Aminotransferase 32 IU/L (17-59); BUN Creatinine Ratio 17.4 (6-22); Bilirubin Total 0.5 mg/dL (0.2-1.3); Blood Urea Nitrogen 15 mg/dL (9-20); Calcium 8.7 mg/dL (8.4-10.2); Carbon Dioxide 28 mmol/L (22-32); Chloride 103 mmol/L (98-107); Estimated Glomerular Filt Rate > 60 mL/min (>60); Globulin 3.2 g/dL (1.7-4.1); Glucose 102 mg/dL (80-110); HEMOLYSIS < 15 (0-50); Potassium 4.5 mmol/L (3.4-5.1); Sodium 136 mmol/L (137-145); Total Protein 6.6 g/dL (6.3-8.2)
--- NOTE | 2024-07-20 07:36 | P.HP_ITS ---
History of Present Illness History of Present Illness Date Patient Seen: 07/20/24 Chief complaint: abnormal labs, sent by Narrative: From night doctor: 64 year old male with past medical history of GERD and asthma was sent here from his PCP for concerning of ongoing bacteremia. Per the patient's report, the patient initially was diagnosed with UTI about a month ago and was treated with Bactrim. However, the patient was still having fever and presented to our ER on 06/30/24 and came back 07/02/24 due to postiive BCx growing GNRs. The patient was sent home on Cefdinir for 10 days due to cultures shows sensitivity to cephalosporin and to follow up with PCP. However, the patient was seen again by PCP yesterdy with still positive blood culture and was sent back to our ER. The patient reports that he is still having some low grade fever at home but denies any dysuria, suprapubic/flank pain, coughing, diarrhea, nausea, vomiting, chest pain or rash. Patient also complains of some mucsle spasm in his lower back two days ago. In our ER, the patient has no sign of sepsis and was hemodynamically stable. CT abdomin pelvic shows no acute findings. Repeat UA was negative. Due to concern of resistent GNRs bacteremia, the patient was started on Zosyn and request for admisison. S: He was treated for possible UTI on June 30. A urine culture was not obtained. He would positive blood cultures from 06/30, this is E coli which is pansensitive. He would persistent symptoms of low-grade fever and rigors which led to another blood culture last Sunday which was again positive. He was completed 11 total days of antibiotics, initially for of 1 antibiotic (Bactrim), then 10 of a 2nd which sounds like it may have been cefdinir. He denies initial hematuria or dysuria but did have frequent urination. His prostate was nontender on a rectal exam on early June visit. He has no history of bacteremia. CT of the abdomen and pelvis was unremarkable. [facility] Medical History GERD (gastroesophageal reflux disease) Asthma Surgical History Total knee replacement status (~2014) H/O shoulder surgery (~2002) Social History marital status: household members: spouse lives independently: Yes occupational status: previously employed Smoking Status: Never smoker alcohol intake: current substance use type: does not use Meds Home Medications and Allergies Home Medications Medication Instructions Recorded Confirmed Type acetaminophen 325 mg capsule 650 mg (2 x 325 mg) PO QID PRN 09/26/23 07/20/24 Rx (Tylenol) pain #60 caps ibuprofen 200 mg tablet 400 mg (2 x 200 mg) PO Q6H #60 tabs 09/26/23 07/20/24 Rx Allergies Allergy/AdvReac Type Severity Reaction Status Date / Time morphine Allergy Verified 07/19/24 19:51 Review of Systems Review of Systems Narrative: All else reviewed and otherwise unremarkable except as noted in the history and physical. Low-grade fever and rigors on 07/18. Exam Vital Signs (past 8 hours): - 07/20/24 00:17 07/20/24 00:24 Temperature 97.7 F Pulse Rate 76 Respiratory Rate 18 Blood Pressure 134/88 Pulse Oximetry 98 Oxygen Delivery Method Room Air Oxygen Flow Rate 0 Oxygen Delivery Method Room Air Oxygen Flow Rate 0 Narrative Exam Narrative: NAD, alert and oriented, fluent speech, calm. Normocephalic skull, EOMI, anicteric sclera, symmetric pupils. Oropharynx unremarkable, no droop. Neck supple, midline trachea, no adenopathy. Lungs clear, normal rate and effort. Heart regular, no murmur gallop or rub. Abdomen is soft, non distended and non tender. Extremities are free of edema. Skin is free of rash or lesions. Joints are not swollen or deformed. Judgment appears to be normal. Objective Imaging CT scan - abdomen: Radiologist's impression: FINDINGS: Lower thorax: The lung bases are clear. Heart size normal. Small hiatal hernia noted. Liver: Normal in size and attenuation. No contour deformity present. Biliary system: No calcified cholelithiasis or pericholecystic inflammation. No intra or extrahepatic bile duct dilatation. Pancreas: Unremarkable without mass or inflammation evident. Spleen: Normal in size and density. Adrenals: Normal morphology and density. Reproductive system: Unremarkable as visualized. Urinary system: Normal renal size and attenuation. No renal calculi, hydronephrosis, or solid mass present. Urinary bladder unremarkable. Gastrointestinal system: The bowel is unremarkable without evidence of bowel obstruction or inflammation. The stomach appears unremarkable. Moderate fecal debris in the right colon Appendix: Normal appendix identified. No evidence of appendicitis. Peritoneal spaces: No mesenteric or retroperitoneal adenopathy. No free air. No free fluid. Vasculature: The IVC, aorta and iliac vasculature are unremarkable. Abdominal wall: Abdominal wall intact without evidence of ventral or inguinal hernias. Musculoskeletal: Normal bone mineralization. No acute fractures. IMPRESSION: Moderate fecal debris in the right colon without obstruction. No acute CT findings in the abdomen pelvis. No abscess or source of infection Labs 07/20/24 04:47 07/20/24 04:47 Labs: Laboratory Results - last 24 hr 07/19/24 07/19/24 07/20/24 20:10 22:00 04:47 WBC 6.6 6.2 RBC 4.35 L 3.95 L Hgb 12.8 L 11.5 L Hct 37.9 L 34.6 L MCV 87.2 87.5 MCH 29.5 29.2 MCHC 33.8 33.4 RDW 13.9 13.5 Plt Count 297 281 Neut % (Auto) 68.3 62.4 Lymph % (Auto) 20.4 L 24.2 L [place] % (Auto) 9.6 12.1 Eos % (Auto) 1.2 L 0.7 L Baso % (Auto) 0.5 0.6 Neut # (Auto) 4500 3900 Lymph # (Auto) 1300 1500 [place] # (Auto) 600 700 Eos # (Auto) 100 0 Baso # (Auto) 0 0 Sodium 137 136 L Potassium 4.4 4.5 Chloride 97 L 103 Carbon Dioxide 33 H 28 BUN 19 15 Creatinine 0.92 0.86 Estimated GFR > 60 > 60 BUN/Creatinine Ratio 20.7 17.4 Glucose 100 102 Lactate 1.1 Calcium 9.2 8.7 Total Bilirubin 0.5 0.5 AST 35 32 ALT 43 34 Alkaline Phosphatase 47 41 Total Protein 7.9 6.6 Albumin 3.8 3.4 L Globulin 4.1 3.2 Albumin/Globulin Ratio 0.9 L 1.1 Urine Color Yellow Urine Appearance Clear Urine pH 5.5 Ur Specific [place] <=1.005 Urine Protein Negative Urine Glucose (UA) Negative Urine Ketones Negative Urine Occult Blood Negative Urine Nitrate Negative Urine Bilirubin Negative Urine Urobilinogen 0.2 Ur Leukocyte Esterase Negative Urine RBC None seen Urine WBC None seen Ur Squamous Epith Cells None seen Urine Bacteria None seen Ur Culture Indicated? Cult not indicated Vol Urine Centrifuged 10ml (spun) Assessment & Plan Assessment & Plan narrative: 1. Persistent E. coli bacteremia. Present on admission and active. -repeat blood cultures were drawn today. -we will switch antibiotics to ceftriaxone only and follow cultures. -CT was negative. -we will discuss with Infectious Disease pending outcome of current blood cultures. 2. Asthma. Present on admission and stable. 3. GERD. Present on admission and stable. DVT PPx hep SQ Code status full code Inpatient status, anticipate 2 midnights medical necessity for hospital care. Disposition: home in 2 days Time-Based Coding :: 35 min spent with patient and on the chart (including review of chart, obtaining history, exam, reviewing outside data, placing orders, documenting exam and treatment plan, and counseling patient) on 07/20. Quality MIPS - Admit I confirm the patient?s Advance Care Plan is present, Code status is documented, Surrogate decision maker is in patient?s record [If Yes, STOP here]: Yes MIPS - Meds 'Current medications' to include all prescriptions, [id number] products, herbals, cannabis/cannabidiol products, and vitamin/mineral/dietary (nutritional) supplements. I have utilized all available resources to obtain, update, or review the patient?s current medications. [If Yes, STOP here]: Yes
[2024-07-20 08:00] VITALS: BP 125/83; PULSE 73; RESP 18; TEMP 36.4; O2SAT 97
--- NOTE | 2024-07-20 13:26 | CM.DANOTE ---
Initial DCP Assessment Visit Note Reviewed EMR and team rounds for status updates. Met with pt and his at bedside to introduce self and role, pt was found alert/oriented, sitting upright in bed, visiting with family. Pt resides independently with his at baseline in their own home in [place]. His will transport him home once stable and medically cleared for d/c, likely in 2-more days. Payor: Medicare PCP: [facility] Provider Pt is a 64 year-old M who was sent yesterday evening for direct admit and further evaluation of recurrent/persistent gram negative rold bacteremia, secondary to a UTI, despite having completed 3-courses of home antibiotics, last dose was approx. 8-days ago. Repeat cultures were drawn and results are pending. Pt was started on IV cefriaxone and admitted to the floor for further tx. Pt denies any discomfort, and denies any assistance/resource needs for discharge at this time, however, DCP will continue to monitor should he need further home IV antibiotics post-discharge. Discharge Planning/Care Management CM Discharge Assessment Start: 07/20/24 13:03 Freq: Status: Active Protocol: Document 07/20/24 13:04 DPL (Rec: 07/20/24 13:21 DPL [id number]) Discharge Planning Assessment Assigned Lace Tearing Supervisor MADAN Barboza Advance Directives? No Advance Directives on File No History Provided By Patient,Family Member Has Patient been admitted in last 30 No days? Prior Living Arrangements House Household Members spouse Type of transporation used prior to Drives own vehicle admit Independent with ADL's Yes Is patient alert and oriented? Yes Caregiver for Another No Comment N/A Comment No identified home d/c needs at this time. Barriers to Discharge No Discharge Plan Home Transportation Arrangement Spouse Referrals Initiated None needed Whiteboard Updated in Patient Room with Yes name and ext. # of Lace Tearing Supervisor Review Status In Process Please Provide Date Initial DC 07/20/24 Assessment Was Performed
[2024-07-20 16:00] VITALS: BP 115/58; PULSE 81; RESP 25; TEMP 37.4; O2SAT 94
[2024-07-20] MEDS: polyethylene glycoL 3350 17 GM POWD.PACK PO (16:22)
[2024-07-20] MEDS: SENNOSIDES 8.6 MG TABLET PO (16:22)
[2024-07-20 20:00] VITALS: BP 151/86; PULSE 69; RESP 24; TEMP 37.3; O2SAT 97
[2024-07-20 23:21] LABS: Acinetobacter calcoa-baumannii Not Detected (Not Detect); Bacteroides fragilis Not Detected (Not Detect); CTX-M Resistance Not Detected (Not Detect); Candida albicans Not Detected (Not Detect); Candida auris Not Detected (Not Detect); Candida glabrata Not Detected (Not Detect); Candida krusei Not Detected (Not Detect); Candida parapsilosis Not Detected (Not Detect); Candida tropicalis Not Detected (Not Detect); Cryptococcus neoformans/gatti Not Detected (Not Detect); Enterobacter cloacae complex Not Detected (Not Detect); Enterobacterales Detected (Not Detect); Enterococcus faecalis Not Detected (Not Detect); Enterococcus faecium Not Detected (Not Detect); Haemophilus influenzae Not Detected (Not Detect); IMP Resistance Not Detected (Not Detect); KPC Resistance Not Detected (Not Detect); Klebsiella aerogenes Not Detected (Not Detect); Listeria monocytogenes Not Detected (Not Detect); NDM Resistance Not Detected (Not Detect); Neisseria meningitidis Not Detected (Not Detect); OXA-48-like Resistance Not Detected (Not Detect); Proteus species Not Detected (Not Detect); Pseudomonas aeruginosa Not Detected (Not Detect); Salmonella species Not Detected (Not Detect); Serratia marcescens Not Detected (Not Detect); Staphylococcus epidermidis Not Detected (Not Detect); Staphylococcus lugdunensis Not Detected (Not Detect); Staphylococcus species Not Detected (Not Detect); Stenotrophomonas maltophilia Not Detected (Not Detect); Streptococcus agalactiae (Gr B Not Detected (Not Detect); Streptococcus pneumonia Not Detected (Not Detect); Streptococcus pyogenes (Gr A) Not Detected (Not Detect); Streptococcus species Not Detected (Not Detect); VIM Resistance Not Detected (Not Detect); mcr-1 Resistance Not Detected (Not Detect)
[2024-07-21] VITALS (7 sets, daily range): BP systolic 114–137; BP diastolic 60–80; PULSE 62–96; RESP 18–24; TEMP 36.9–38.4; O2SAT 94–96
[2024-07-21] MEDS: PIPERACILLIN/TAZO 3.375 GM in SODIUM CHLORIDE 0.9% 100 ML IV (04:02)
--- NOTE | 2024-07-21 07:44 | PM.PN.1 ---
Subjective Subjective Interval history: Summary: Admitted for concern for E coli bacteremia, which has been persistent since June 30. Subjective: He feels about the same, no fevers or chills overnight. No focal symptoms or pain. One of 2 cultures from 07/19 is positive. Exam Vital Signs (past 8 hours): - 07/21/24 04:00 Temperature 98.4 F Pulse Rate 62 Respiratory Rate 24 Blood Pressure 124/77 Pulse Oximetry 96 Oxygen Flow Rate 0 Oxygen Delivery Method Room Air Oxygen Flow Rate 0 Narrative Exam Narrative: NAD, alert and oriented. Fluent speech. Lungs are clear, normal rate and effort. Heart is regular, no murmur gallop or rub. Abdomen is soft, non distended. Extremities are free of edema. Objective Labs 07/20/24 04:47 07/20/24 04:47 Labs: Laboratory Results - last 24 hr 07/19/24 20:10 A.calcoaceticus-baumannii cmplx PCR Not detected Bacteroides fragilis Not detected Candace albicans (PCR) Not detected Candace auris (PCR) Not detected C. glabrata (PCR) Not detected C. krusei (PCR) Not detected C. parapsilosis (PCR) Not detected C. tropicalis (PCR) Not detected C. neoform/gattii (PCR) Not detected Enterobacterales (PCR) Detected E. cloacae complex PCR Not detected Enterococc faecalis PCR Not detected Enterococc faecium PCR Not detected E. coli (PCR) Detected H. influenzae (PCR) Not detected Klebsiella aerogenes (PCR) Not detected Klebsiella oxytoca PCR Not detected Klebsiella pneumoniae Not detected List. monocytogenes PCR Not detected N. meningitidis (PCR) Not detected Proteus species (PCR) Not detected Salmonella spp. (PCR) Not detected Serratia marcescens PCR Not detected Staphylococcus sp PCR Not detected Staph aureus (PCR) Not detected mecA/C & MREJ Resist Gene Not applicable mecA/C-Methicil Resis Gene Not applicable mcr-1 Colistin Res Gene PCR Not detected Staph epidermidis (PCR) Not detected Staph lugdunensis PCR Not detected S. maltophilia (PCR) Not detected Streptococcus sp PCR Not detected Group A Strep (PCR) Not detected Strep agalactiae (PCR) Not detected Strep pneumoniae (PCR) Not detected P. aeruginosa (PCR) Not detected Sofi/B-Vanco Res Genes Not applicable blaIMP Car res Gene PCR Not detected KPC-Carbap Res Gene PCR Not detected blaNDM Car Res Gene PCR Not detected OXA-48 Carbapenem Resis Gene (PCR) Not detected blaVIM Car Res Gene PCR Not detected CTX-M Gene Resistance (PCR) Not detected PFSH Medical History GERD (gastroesophageal reflux disease) Asthma Surgical History Total knee replacement status (~2014) H/O shoulder surgery (~2002) Social History marital status: household members: spouse lives independently: Yes occupational status: previously employed Smoking Status: Never smoker alcohol intake: current substance use type: does not use Assessment & Plan Assessment & Plan narrative: 1. Persistent E. coli bacteremia. Present on admission and active. 2. Asthma. Present on admission and stable. 3. GERD. Present on admission and stable. Plan: -continue antibiotics -repeat blood cultures to see if they have cleared -right upper quadrant ultrasound if negative we will consider a prostate MRI. -discussed with Infectious diseases this morning. DVT PPx hep SQ Code status full code Inpatient status, anticipate 2 midnights medical necessity for hospital care. Disposition: home in 2 days Time-Based Coding :: [TOTAL MINUTES] spent with patient and on the chart (including review of chart, obtaining history, exam, reviewing outside data, placing orders, documenting exam and treatment plan, and counseling patient) on [DATE].
[2024-07-21] MEDS: ACETAMINOPHEN 325 MG TABLET 650 MG PO ×2 (08:20→17:39)
[2024-07-21] MEDS: polyethylene glycoL 3350 17 GM POWD.PACK PO (08:20)
--- NOTE | 2024-07-21 10:40 | DI.US.S_ITS ---
PROCEDURE: US ABDOMEN LIMITED INDICATIONS: Rule out cholecystitis or blocked tubes TECHNIQUE: Real-time scanning was performed of the abdominal and retroperitoneal organs, with image documentation. COMPARISON: None. FINDINGS: Liver: The liver demonstrates diffusely increased echotexture without focal abnormalities consistent with chronic hepatocellular disease/hepatic steatosis. Main portal vein measures 15.7 mm in diameter with hepatopetal flow. Gallbladder: No gallstones. No wall thickening. No pericholecystic edema. Negative sonographic Alexander's sign. Biliary ducts: Intrahepatic bile ducts are non-dilated. Extrahepatic bile duct caliber measures 7 mm. Normal is 6-7 mm or less in diameter, or 10 mm or less post-cholecystectomy. Pancreas: Visualized portions of the pancreas are sonographically normal. Miscellaneous: No free abdominal fluid. Prominent column of Kory noted in the right kidney. No hydronephrosis. IMPRESSION: The liver demonstrates diffusely increased echotexture without focal abnormalities consistent with chronic hepatocellular disease/hepatic steatosis. Dictated by: Herman Macedo M.D. on 07/21/2024 at 15:54 Approved by: Herman Macedo M.D. on 07/21/2024 at 15:55
[2024-07-21] MEDS: cefTRIAXone 2,000 MG in SODIUM CHLORIDE 0.9% 100 ML 200 MG IV (12:43)
--- NOTE | 2024-07-22 | DI.MRI.S_ITS ---
PROCEDURE: MR PELVIC PROSTATE PROTOCOL INDICATIONS: rule out abscess TECHNIQUE: Coronal HASTE, axial T1 FSE with fat saturation, 3-plane nonbreath-hold T2 FSE. After the administration of contrast, dynamic axial, delayed axial and coronal VIBE or 2-D FLASH with fat saturation through the pelvis. Diffusion weighted imaging and ADC was performed. COMPARISON: [facility], CT, CT ABDOMEN PELVIS W CON, 07/19/2024, 20:50. FINDINGS: Image quality: Diffusion weighted and dynamic contrast enhanced images are diagnostic. Prostate: 3.8 x 3.2 x 3.4 cm. Estimated volume is 21.5 cc. Mildly T2 hypointense heterogenous appearance of the peripheral zone may be seen with current or prior prostatitis, PI-RADS 2. This can obscure small cancers. No drainable abscess is identified. Genitourinary system: Bladder is distended, overall unremarkable Bowel and peritoneum: No pathologic free pelvic fluid. Inferior colon and small bowel loops are normal in caliber. Nodes and vessels: No aneurysmal vessel identified. No pathologic lymph nodes by size criteria Soft tissues: Pelvic wall appears unremarkable. Bones: There are degenerative changes IMPRESSION: Signal abnormality throughout the peripheral zone of the prostate, probably representing prostatitis, no drainable abscess identified. Overall assessment is PI-RADS 2. Consider continued PSA surveillance and repeat MRI if clinically indicated. Dictated by: Maxime Kerns M.D. on 07/22/2024 at 19:57 Approved by: Maxime Kerns M.D. on 07/22/2024 at 20:03
[2024-07-22] MEDS: SODIUM CHLORIDE 0.9% 1,000 ML 100 ML IV ×2 (03:10→14:24)
[2024-07-22 04:00] VITALS: BP 111/57; PULSE 62; RESP 24; TEMP 36.8; O2SAT 96
[2024-07-22] MEDS: ACETAMINOPHEN 325 MG TABLET 650 MG PO ×3 (08:35→21:39)
--- NOTE | 2024-07-22 10:32 | DI.ECHO.S_ITS ---
[facility]+ [facility] : : [id number] : : [place] : : [id number] : : Phone: [phone] Echocardiogram Report + + :Name: ANABELLE CHRISTIANSON Study Date: 07/23/2024 Height: 71 in : :[facility] ReadingLocation: Weight: 244 lb : : Gender: Male BSA: 2.3 m2 : :: 1960 Age: 64 yrs BP: 137/83 mmHg: :Reason For Study: BACTEREMIA : :Ordering Physician: IVONE, : :MALIK Ambriz Performed By: Fany Stevenson : :Referring: MALIK WISEMAN : + + Interpretation Summary The ejection fraction is estimated to be 55-60%. There are no obvious focal wall motion abnormalities noted but poor endocardial definition reduces the sensitivity for the detection of such. The right ventricle is mildly dilated. The right ventricular systolic function is normal. There is trace mitral regurgitation. There is mild tricuspid regurgitation. The right ventricular systolic pressure is estimated to be at least 29 mmHg based on an estimated right atrial pressure of 8 mm Hg. Consider HANDY if clinicalyy indicated. Procedure: A two-dimensional transthoracic echocardiogram with color flow and Doppler was performed. The study quality was technically adequate. There is no prior echocardiogram noted for this patient. The patient was in sinus rhythm with heart rates between 58-72 bpm during the exam. Left Ventricle: The left ventricle is normal in size. Left ventricular wall thickness is mildly increased. The ejection fraction is estimated to be 55- 60%. There are no obvious focal wall motion abnormalities noted but poor endocardial definition reduces the sensitivity for the detection of such. Right Ventricle: The right ventricle is mildly dilated. The right ventricular systolic function is normal. Atria: The left atrial size is normal. Right atrial size is normal. There is no Doppler evidence for an interatrial shunt. Mitral Valve: The mitral valve is normal in structure and function. There is trace mitral regurgitation. Aortic Valve: The aortic valve is trileaflet. The aortic valve opens well. There is no aortic valve stenosis. No aortic regurgitation is present. Tricuspid Valve: The tricuspid valve is normal in structure and function. There is mild tricuspid regurgitation. The right ventricular systolic pressure is estimated to be at least 29 mmHg based on an estimated right atrial pressure of 8 mm Hg. Pulmonic Valve: The pulmonic valve leaflets are thin and pliable; valve motion is normal. There is no pulmonic valvular regurgitation. Great Vessels: The aortic root is normal size. The ascending aorta is at the upper limits of normal in size. The IVC is dilated (diameter is greater than 2.1 cm) yet it collapses greater than 50% with a sniff. This suggests a right atrial pressure of 8 mm Hg. Pericardium/ Pleura There is no pericardial effusion. There is an anterior echo-free space consistent with a fat pad. There is no pleural effusion. MMode/2D Measurements & Calculations LVIDd: 5.9 cm LVOT diam: 2.5 cm LVIDs: 4.0 cm Ao root diam: 3.8 cm FS: 31.6 % asc Aorta Diam: 3.9 cm IVSd: 0.82 cm Ao Arch Diam (Prox Trans): 2.7 cm LVPWd: 1.2 cm LV carrizales. diameter/BSA (cm/m^2): 2.6 LV sys. diameter/BSA (cm/m^2): 1.7 LA A2 area: 24.8 cm2 RA long axis: 5.2 cm LA A4 area: 15.2 cm2 RA area: 18.5 cm2 LA length (vol): 4.9 cm RA vol: 56.4 ml LA vol: 64.9 ml RA : 24.6 ml/m2 LA vol index: 28.3 ml/m2 IVC diam: 2.3 cm RVD1 (basal): 4.3 cm RVD2 (mid): 3.6 cm TAPSE: 2.0 cm Doppler Measurements & Calculations Ao V2 max: 120.8 cm/sec LVOT Max Mynor: 88.5 cm/sec Ao V2 mean: 86.9 cm/sec LV V1 max P.1 mmHg Ao max P.8 mmHg LV V1 VTI: 17.4 cm Ao mean P.3 mmHg DENISSE(I,D): 3.4 cm2 Ao V2 VTI: 25.1 cm DENISSE(V,D): 3.6 cm2 sev ratio: 0.69 DENISSE indexed to BSA (cm^2/m^2): 1.5 MV E max mynor: 69.2 cm/sec TR max mynor: 231.9 cm/sec MV A max mynor: 57.1 cm/sec TR max P.6 mmHg MV E/A: 1.2 PA V2 max: 112.6 cm/sec Med Peak E' Mynor: 10.0 cm/sec PA V2 mean: 84.7 cm/sec E/E' med: 6.9 PA mean P.1 mmHg Lat Peak E' Mynor: 10.9 cm/sec PA pr(Accel): 44.7 mmHg E/E' lat: 6.3 E/e' average: 6.6 MV dec time: 0.20 sec SV(LVOT): 84.6 ml Reading Physician:11:03 AM
[2024-07-22 12:00] VITALS: BP 138/80; PULSE 68; RESP 22; TEMP 36.6; O2SAT 97
[2024-07-22] MEDS: cefTRIAXone 2,000 MG in SODIUM CHLORIDE 0.9% 100 ML 200 MG IV (12:20)
--- NOTE | 2024-07-22 13:32 | PM.PN.1 ---
Subjective Subjective Interval history: Admitted for persistent bacteremia going back to June 30. S: Feels relatively good today, no fevers overnight. Some left-sided back pain which increases with movement. Exam Vital Signs (past 8 hours): - 07/22/24 12:00 Temperature 97.8 F Pulse Rate 68 Respiratory Rate 22 Blood Pressure 138/80 Pulse Oximetry 97 Oxygen Flow Rate 0 Oxygen Delivery Method Room Air Oxygen Flow Rate 0 Narrative Exam Narrative: NAD, alert and oriented. Fluent speech. Lungs are clear, normal rate and effort. Heart is regular, no murmur gallop or rub. Abdomen is soft, non distended. Extremities are free of edema. Objective Labs 07/20/24 04:47 07/20/24 04:47 [facility] Medical History GERD (gastroesophageal reflux disease) Asthma Surgical History Total knee replacement status (~2014) H/O shoulder surgery (~2002) Social History marital status: household members: spouse lives independently: Yes occupational status: previously employed Smoking Status: Never smoker alcohol intake: current substance use type: does not use Assessment & Plan Assessment & Plan narrative: 1. Persistent E. coli bacteremia. Present on admission and active. 2. Asthma. Present on admission and stable. 3. GERD. Present on admission and stable. Plan: -continue antibiotics, Ceftriaxone 2 G IV daily. -repeat blood cultures to see if they have cleared (07/21) -discussed with Infectious diseases this morning, initially recommended transfer for a tagged WBC scan. The patient was resistant to this idea, therefore we will use a prostate MRI to rule out abscess as well as a 2D echo to rule out obvious valve disease and reassess with ID tomorrow. DVT PPx hep SQ Code status full code Inpatient status, anticipate 2 midnights medical necessity for hospital care. Time-Based Coding :: [TOTAL MINUTES] spent with patient and on the chart (including review of chart, obtaining history, exam, reviewing outside data, placing orders, documenting exam and treatment plan, and counseling patient) on [DATE].
--- NOTE | 2024-07-22 14:50 | CM.DPC ---
DCP Cont. Reviewed EMR and team rounds for status updates. Per Hospitalist this am, plan was to transfer pt to [facility] for a tagged WBC scan, however pt did not want to transfer. New plan is to have her get an MRI here (prostate MRI) and 2D echo to rule out any obvious valve disease, then consult with [facility] ID tomorrow for next steps. Monitoring closely, plan is still to d/c home w/spouse once medically cleared and stable.
[2024-07-22 20:00] VITALS: BP 137/76; PULSE 61; RESP 24; TEMP 36.4; O2SAT 95
[2024-07-23] MEDS: SODIUM CHLORIDE 0.9% 1,000 ML 100 ML IV ×2 (02:14→12:48)
[2024-07-23 04:00] VITALS: BP 137/83; PULSE 66; RESP 24; TEMP 36.4; O2SAT 96
[2024-07-23] MEDS: SENNOSIDES 8.6 MG TABLET PO (04:50)
[2024-07-23] MEDS: ACETAMINOPHEN 325 MG TABLET 650 MG PO ×2 (04:50→12:48)
[2024-07-23] MEDS: polyethylene glycoL 3350 17 GM POWD.PACK PO (04:51)
[2024-07-23 08:00] VITALS: BP 126/80; PULSE 86; TEMP 36.7; O2SAT 96
--- NOTE | 2024-07-23 11:17 | CM.DPC ---
DCP Cont. Reviewed EMR and team rounds for status updates. Plan is to continue IV ABO's for now, once stable he will d/c home w/spouse. No further changes in POC.
--- NOTE | 2024-07-23 12:32 | P.DS_ITS ---
History of Present Illness History of Present Illness Chief complaint: abnormal labs, sent by Narrative: From night doctor: 64 year old male with past medical history of GERD and asthma was sent here from his PCP for concerning of ongoing bacteremia. Per the patient's report, the patient initially was diagnosed with UTI about a month ago and was treated with Bactrim. However, the patient was still having fever and presented to our ER on 06/30/24 and came back 07/02/24 due to postiive BCx growing GNRs. The patient was sent home on Cefdinir for 10 days due to cultures shows sensitivity to cephalosporin and to follow up with PCP. However, the patient was seen again by PCP yesterdy with still positive blood culture and was sent back to our ER. The patient reports that he is still having some low grade fever at home but denies any dysuria, suprapubic/flank pain, coughing, diarrhea, nausea, vomiting, chest pain or rash. Patient also complains of some mucsle spasm in his lower back two days ago. In our ER, the patient has no sign of sepsis and was hemodynamically stable. CT abdomin pelvic shows no acute findings. Repeat UA was negative. Due to concern of resistent GNRs bacteremia, the patient was started on Zosyn and request for admisison. S: He was treated for possible UTI on June 30. A urine culture was not obtained. He would positive blood cultures from 06/30, this is E coli which is pansensitive. He would persistent symptoms of low-grade fever and rigors which led to another blood culture last Sunday which was again positive. He was completed 11 total days of antibiotics, initially for of 1 antibiotic (Bactrim), then 10 of a 2nd which sounds like it may have been cefdinir. He denies initial hematuria or dysuria but did have frequent urination. His prostate was nontender on a rectal exam on early June visit. He has no history of bacteremia. CT of the abdomen and pelvis was unremarkable. Discharge Providers Provider Date of admission: 07/19/24 22:58 Discharge Date: 07/23/24 Primary care physician: Noble ARMANDO Provider Consults: Discussed case extensively with Infectious Disease at [facility]. He has a follow up appointment there on July 30. Discharge provider: Jone Merida MD Summary Hospital Course Discharge Diagnosis: 1. Persistent E. coli bacteremia. Present on admission and active. 2. Asthma. Present on admission and stable. 3. GERD. Present on admission and stable. 4. Steatohepatitis, present on admission and active 5. Prostatitis, present on admission and active. His symptoms of probable prostatitis predate back to the beginning of June when he was having urinary symptoms including urinary frequency. Hospital Course: The patient was admitted with a persistent E coli bacteremia. He was ill in the beginning of June and blood cultures were obtained 3 days after he started antibiotics which were positive for E coli, 2/2. He was on Bactrim for 4 days and then cefdinir for 10 days. Repeat blood cultures were positive again the Sunday before he was admitted to the hospital. His initial set of cultures were also positive, 2/. The patient was treated with ceftriaxone while in the hospital and a CT of the abdomen and pelvis was unremarkable. Ultrasound of the liver and biliary tree was also unremarkable. A prostate MRI was consistent with prostatitis but there was no abscess identified. Echo was also unremarkable. The patient had a 2nd set of blood cultures on which were negative x2. The working theory was that he had prostatitis with his bacteremia. The following plan was made with Infectious Disease, he will be discharged on Levaquin 750 daily with a 14 day supply. He was a follow up appointment with Dr. Corey, infectious Disease at [facility], on July 30. Status at Discharge Cognitive/behavioral status at discharge: oriented Functional status at discharge: independent ambulation Overall status at discharge: patient is back to baseline Time Spent with Patient Time spent: Greater than 30 minutes Exam Vital Signs (past 8 hours): - 07/23/24 08:00 Temperature 98.1 F Pulse Rate 86 Blood Pressure 126/80 Pulse Oximetry 96 Oxygen Delivery Method Room Air Oxygen Flow Rate 0 Narrative Exam Narrative: NAD, alert and oriented. Fluent speech. Lungs are clear, normal rate and effort. Heart is regular, no murmur gallop or rub. Abdomen is soft, non distended. Extremities are free of edema. Objective Imaging Multiple studies:: Radiologist's impression: CT abdomen and pelvis: Moderate fecal debris in the right colon without obstruction. No acute CT findings in the abdomen pelvis. No abscess or source of infection Abdominal right upper quadrant ultrasound: The liver demonstrates diffusely increased echotexture without focal abnormalities consistent with chronic hepatocellular disease/hepatic steatosis. Prostate MRI: Signal abnormality throughout the peripheral zone of the prostate, probably representing prostatitis, no drainable abscess identified. Overall assessment is PI-RADS 2. Consider continued PSA surveillance and repeat MRI if clinically indicated. Echo: The ejection fraction is estimated to be 55-60%. There are no obvious focal wall motion abnormalities noted but poor endocardial definition reduces the sensitivity for the detection of such. The right ventricle is mildly dilated. The right ventricular systolic function is normal. There is trace mitral regurgitation. There is mild tricuspid regurgitation. The right ventricular systolic pressure is estimated to be at least 29 mmHg based on an estimated right atrial pressure of 8 mm Hg. Consider HANDY if clinicalyy indicated. Chest CT from July 01: No pneumonia or neoplasm found. Presumed adhesion between the lateral border of the right hemidiaphragm and the inter margin of the right lower lateral pleural space causing tenting of the diaphragm in that area cephalad to mild degree. A pleural adhesion can induce recurrent coughing. Abdomen and pelvis CT from June 30: Mild hepatosplenomegaly. No sign of focal infection or underlying neoplasm. Source of sepsis syndrome is not identified. Labs 07/20/24 04:47 07/20/24 04:47 [facility] Medical History GERD (gastroesophageal reflux disease) Asthma Surgical History Total knee replacement status (~2014) H/O shoulder surgery (~2002) Social History marital status: household members: spouse lives independently: Yes occupational status: previously employed Smoking Status: Never smoker alcohol intake: current substance use type: does not use Discharge Assessment & Plan Assessment and Plan Assessment: 1. Persistent E. coli bacteremia. Present on admission and active. 2. Asthma. Present on admission and stable. 3. GERD. Present on admission and stable. 4. Steatohepatitis, present on admission and active 5. Prostatitis, present on admission and active. His symptoms of probable prostatitis predate back to the beginning of June when he was having urinary symptoms including urinary frequency. Plan of Treatment: Discharge home with Levaquin 750 daily, Infectious Disease follow up on July 30. He was given 14 days of Levaquin but we will likely be on an extended course after seeing Infectious Disease. Discharge Plan Discharge Plan Patient Disposition: Home Provider Discharge Comment: Stable for discharge home on levofloxacin 750 daily will be given 2 weeks. He will have an appointment with Infectious Disease, Dr. Corey on July 30. I have discussed the case and diagnostics as extensively with her. Discharge orders & Medications Prescriptions: New levofloxacin 750 mg tablet 750 mg PO DAILY Qty: 14 0RF Continued ibuprofen 200 mg tablet 400 mg PO Q6H Qty: 60 0RF acetaminophen [Tylenol] 325 mg capsule 650 mg PO QID PRN (Reason: pain) Qty: 60 0RF Follow up/Referrals: Cami Corey MD [Non-Staff] - Provider,Noble ARMANDO [Primary Care Provider] - Discharge Health Status Multidrug resistant organism: No MDRO Diet/Activity/Treatments Diet: Regular Skin/Wound/Dressing Care Report to your healthcare provider any signs of infection, such as:: chills, fever and night sweats Visit Report/Discharge Packet Instructions: DI for Bacteremia-Adult Stand Alone Forms: Patient Portal/API Discharge Data Primary Care Provider: ProviderNoble
[2024-07-23] MEDS: cefTRIAXone 2,000 MG in SODIUM CHLORIDE 0.9% 100 ML 200 MG IV (12:48)
[2024-07-23 16:00] VITALS: BP 141/83; PULSE 78; TEMP 37.1; O2SAT 96
--- NOTE | 2024-07-23 17:14 | PC.NURSE ---
Patient discharged home at 1513, ambulated off floor independently accompanied by spouse and hospital staff. IV removed, discharge teaching completed including follow up appointments, worsening symptoms and new medications. Questions answered and concerns addressed. Patient left the floor with all belongings.
== END 2024-07-23 17:16 | disposition home or self-care (01) | DRG 872 ==
LOC: ED 22:57 → AC 22:58
PROVIDERS: Admitting Provider Internal Medicine; Emergency Provider Emergency Medicine; Referring Provider Emergency Medicine; Visit Provider Internal Medicine
DX: R78.81 Bacteremia (principal); K21.9 Gastro-esophageal reflux disease without esophagitis; J45.909 Unspecified asthma, uncomplicated; B96.20 Unspecified Escherichia coli [E. coli] as the cause of diseases classified elsewhere; K75.81 Nonalcoholic steatohepatitis (NASH); N41.9 Inflammatory disease of prostate, unspecified
CPT/HCPCS: 36415; 72197; 74177; 76705; 80053; 81001; 83605; 85025; 87040; 87077; 87154; 87186; 93306; 96361; 96365; 99284; 99285; A9579; J0696; J2543; Q9967

== ENCOUNTER 2024-09-09 09:33 | Inpatient (IN) | payer MEDICARE, OTHER, SELFPAY ==
[2024-09-09] VITALS (11 sets, daily range): BP systolic 134–183; BP diastolic 63–95; PULSE 61–86; RESP 16–20; TEMP 36.2–36.9; O2SAT 95–96; BMI 34.8
--- NOTE | 2024-09-09 09:57 | DI.RAD.S_ITS ---
PROCEDURE: XR CHEST 1V INDICATIONS: cough TECHNIQUE: One view of the chest was acquired. COMPARISON: [facility], CT, CT CHEST W CON, 07/01/2024, 0:15. [facility], CR, XR CHEST 1V, 06/30/2024, 20:47. FINDINGS: Surgical changes and devices: None. Lungs and pleura: Lungs are clear. Stable right basilar pleural-parenchymal scarring. No pleural effusions or pneumothorax. Mediastinum: Mediastinal contours appear normal. Heart size is normal. Bones and chest wall: No suspicious bony lesions. Overlying soft tissues appear unremarkable. IMPRESSION: No acute cardiopulmonary abnormality is seen. Dictated by: Opal Hess MD, PhD on 09/09/2024 at 10:43 Approved by: Opal Hess MD, PhD on 09/09/2024 at 10:45
--- NOTE | 2024-09-09 09:57 | ED.GENADULT ---
HPI - General Adult General Chief complaint: Recheck/Abnormal Lab/Rx Stated complaint: gram- bacteria hx - same symptoms Time Seen by Provider: 09/09/24 09:41 History of Present Illness HPI narrative: 64-year-old gentleman who was admitted over labor day weekend with E coli bacteremia uncertain source eventually presumed to be prostatitis, was on levofloxacin for 2 weeks, outpatient infectious disease control. Was doing well until 2-3 days ago when he began having recurrent symptoms. He comes in for further evaluation. He describes for 5 days ago increasing temperatures at night, not sweating through his T-shirt at night as he done previously but certainly a change. Over the last couple of days he definitely feels symptoms similar to when he was initially diagnosed with bacteremia. He describes abdominal pain at approximately upper flank level that is not reproducible with palpation. He has pain with twisting his back but no pain with palpation along his back. No obvious skin changes no cough, palpitations, dysuria no vomiting or diarrhea Related Data Previous Rx's Medication Instructions Recorded acetaminophen 325 mg capsule 650 mg (2 x 325 mg) PO QID PRN 09/26/23 (Tylenol) pain #60 caps ibuprofen 200 mg tablet 400 mg (2 x 200 mg) PO Q6H #60 tabs 09/26/23 levofloxacin 750 mg tablet 750 mg PO DAILY #14 tabs 07/23/24 Allergies Allergy/AdvReac Type Severity Reaction Status Date / Time morphine Allergy Verified 07/19/24 19:51 Review of Systems Review of Systems Narrative: Pertinent positive and negative findings as per HPI Patient History Medical History GERD (gastroesophageal reflux disease) Asthma Surgical History Total knee replacement status (~2014) H/O shoulder surgery (~2002) Social History marital status: household members: spouse lives independently: Yes occupational status: previously employed Smoking Status: Never smoker alcohol intake: current substance use type: does not use Smoking Status: Never smoker alcohol intake frequency: holidays/special occasions only Substance Use Type: does not use Exam Initial Vital Signs Initial Vital Signs: Vital Signs Temperature 98.4 F 09/09/24 09:45 Pulse Rate 86 09/09/24 09:45 Respiratory Rate 16 09/09/24 09:45 Blood Pressure 137/69 09/09/24 09:45 Pulse Oximetry 96 09/09/24 09:45 Oxygen Delivery Method Room Air 09/09/24 09:45 General: Healthy appearing, in no acute distress. Able to give a complete and coherent history. Well-nourished well-developed HEENT: Moist mucous membranes, normal sclera with reactive pupils, Neck: No JVD, supple Respiratory: Lungs are clear to auscultation, no wheezing no rales no rhonchi. Full and symmetrical air movement Cardiac: Regular rate and rhythm no murmurs no bruits Abdomen: Soft, nontender to palpation, good bowel tones, no flank pain Spine: No specific midline tenderness along thoracic or lumbar spine Skin: Slightly flushed but otherwise Warm and dry, no rashes Neurologic: Grossly neurologically intact with no obvious asymmetries or abnormalities Extremities: No trauma, well perfused Psych: Cooperative, appropriate insight and affect Course Orders Ordered: ED Orders 09/09/24 09:55 Covid-19 + FLU A/B + RSV - PCR Stat 09/09/24 09:57 XR chest 1V Stat 09/09/24 10:00 CK [Creatine Kinase] Stat CRP [C-Reactive Protein Quant] Stat Complete Blood Count AUTO DIFF Stat Comprehensive Metabolic Panel Stat Procalcitonin Stat 09/09/24 10:45 Blood Culture Stat 09/09/24 15:34 CT abdomen pelvis w con Stat 09/09/24 15:35 MR lumbar spine wo/w con Stat MR thoracic spine wo/w con Stat 09/09/24 16:05 Urinalysis and Microscopic Stat Discontinued Medications Ceftriaxone Sodium 2,000 mg/ (Sodium Chloride) 100 mls @ 200 mls/hr IV NOW ONE Stop: 09/09/24 15:35 Last Infusion: 09/09/24 16:28 Dose: Infused Documented By: Admin: 09/09/24 15:57 Dose: 200 mls/hr Documented By: CRIS Ketorolac Tromethamine (Ketorolac 30 Mg/Ml Vial) 15 mg IV NOW ONE Stop: 09/09/24 15:35 Last Admin: 09/09/24 15:57 Dose: 15 mg Documented By: CRIS Oxycodone/Acetaminophen (Oxycodone/Acetaminophen 5/325 Tablet) 1 tab PO NOW ONE Stop: 09/09/24 15:35 Last Admin: 09/09/24 15:58 Dose: 1 tab Documented By: CRIS Vital Signs Vital signs: Vital Signs - 8 hr 09/09/24 09:45 09/09/24 13:21 09/09/24 13:22 Temperature 98.4 F Pulse Rate 86 72 Respiratory Rate 16 Blood Pressure 137/69 146/82 H Pulse Oximetry 96 95 Oxygen Delivery Method Room Air 09/09/24 13:22 09/09/24 13:30 09/09/24 13:30 Temperature Pulse Rate 68 72 Respiratory Rate Blood Pressure 150/87 H Pulse Oximetry 95 96 Oxygen Delivery Method 09/09/24 14:00 09/09/24 14:00 09/09/24 14:30 Temperature Pulse Rate 69 Respiratory Rate Blood Pressure 164/85 H 154/89 H Pulse Oximetry 96 Oxygen Delivery Method 09/09/24 14:30 09/09/24 15:00 09/09/24 15:00 Temperature Pulse Rate 68 61 Respiratory Rate Blood Pressure 135/63 Pulse Oximetry 96 96 Oxygen Delivery Method 09/09/24 15:30 09/09/24 15:31 09/09/24 15:31 Temperature Pulse Rate 69 69 Respiratory Rate Blood Pressure 183/79 H Pulse Oximetry 96 96 Oxygen Delivery Method Medical Decision Making Lab Data 09/09/24 10:00 09/09/24 10:00 Labs: Lab Results 09/09/24 09/09/24 Range/Units 09:55 10:00 WBC 11.5 H (4.5-11.0) X10^3/uL RBC 4.40 L (4.5-5.9) X10^6/uL Hgb 12.7 L (13.5-17.5) g/dL Hct 37.3 L (41-53) % MCV 84.8 (80-100) fL MCH 28.8 (26-34) PG MCHC 34.0 (30-36) % RDW 14.4 (11.6-14.8) % Plt Count 275 (150-400) X10^3/uL Neut % (Auto) 79.6 H (50-75) % Lymph % (Auto) 11.0 L (25-40) % Cavalier % (Auto) 8.8 (3-14) % Eos % (Auto) 0.3 L (2-4) % Baso % (Auto) 0.3 (0-2) % Neut # (Auto) 9200 H (4329-1749) /uL Lymph # (Auto) 1300 (7727-7325) /uL Cavalier # (Auto) 1000 H (0-900) /uL Eos # (Auto) 0 (0-450) /uL Baso # (Auto) 0 (0-100) /uL Sodium 137 (137-145) mmol/L Potassium 4.4 (3.4-5.1) mmol/L Chloride 101 (98-107) mmol/L Carbon Dioxide 28 (22-32) mmol/L BUN 13 (9-20) mg/dL Creatinine 1.03 (0.66-1.25) mg/dL Estimated GFR > 60 (>60) mL/min BUN/Creatinine Ratio 12.6 (6-22) Glucose 112 H (80-110) mg/dL Calcium 9.3 (8.4-10.2) mg/dL Total Bilirubin 0.7 (0.2-1.3) mg/dL AST 22 (17-59) IU/L ALT 17 (<50) IU/L Alkaline Phosphatase 38 (38-126) U/L Total Creatine Kinase 74 (55-170) U/L C-Reactive Protein 4.9 H (<1.0) mg/dL Total Protein 8.3 H (6.3-8.2) g/dL Albumin 4.4 (3.5-5.0) g/dL Globulin 3.9 (1.7-4.1) g/dL Albumin/Globulin Ratio 1.1 (1.0-2.8) Procalcitonin 0.094 (<0.5) ng/mL SARS-CoV-2 (PCR) Negative (Negative) Influenza A (RT-PCR) Flu a negative (NEGATIVE) Influenza B (RT-PCR) Flu b negative (NEGATIVE) RSV (PCR) Negative (Negative) Imaging Data CT scan - abdomen/pelvis: Radiologist's Impression: CORRECTION Corrected on: 09/09/2024; PROCEDURE: CT ABDOMEN PELVIS W CON INDICATIONS: Bacteremia unclear source, bandlike upper abdominal pain TECHNIQUE: After the administration of intravenous contrast, axial sections acquired from the lung bases to the pubic symphysis. Coronal and sagittal reformats were performed. For radiation dose reduction, the following was used: automated exposure control, adjustment of mA and/or kV according to patient size. COMPARISON: [facility], CT, CT ABDOMEN PELVIS W CON, 07/19/2024, 20:50. FINDINGS: Image quality: Diagnostic Lower chest: Scattered scarring and atelectasis. Similar subtle pleural thickening along the right costophrenic angle, as before Small hiatal hernia. Normal heart size. Liver: Unremarkable. Segment 7 granuloma again seen. Gallbladder and biliary system: Unremarkable, nondilated. Small duodenal diverticulum adjacent to the ampulla. Pancreas: No ductal dilation Spleen: Borderline enlarged at 13 centimeters Adrenals: No discrete nodules Kidneys: No hydronephrosis no obstructing calcified stone. In the left upper region, there is a 2.1 centimeter fluid containing lesion that was not present on CT from 07/19/2024. Internal density is heterogeneous. Some parts measure above fluid density. Vessels and lymph nodes: No abdominal aortic aneurysm. No pathologic lymph nodes by size criteria Bowel and peritoneum: No evidence of small bowel obstruction no pathologic ascites. The appendix is nondilated. Body wall: Small fat containing inguinal hernias. Small rectus diastasis. Pelvis: Bladder is unremarkable. The prostate is unremarkable on limited CT evaluation Bones: lumbosacral degenerative changes. Increased endplate erosive changes at T9-T10, with surrounding edematous fat stranding. (a report correction was made to delete no acute or suspicious osseous findings under bones in the findings section) IMPRESSION: Fluid containing lesion in the left kidney with heterogeneous internal density, new compared to 07/19/2024. This measures 2.1 centimeters (3/72). Differential includes interval appearance of a complicated cyst versus abscess. A renal protocol MRI is suggested to further evaluate for possible enhancement and diffusion restriction. T9-T10 endplate erosive changes suspicious for discitis/osteomyelitis. Other findings above. Dictated by: Maxime Kerns M.D. on 09/09/2024 at 16:18 MDM Narrative Medical decision making narrative: CC: Increasing temperatures, general malaise feeling like he did when asymptomatic bacteria with the coli was diagnosed Complicating co-morbidities: Recent treatment with Levaquin for 14 days for asymptomatic bacteria. Presumption was prostatitis however MRI of the prostate and urine were never conclusive. Data collected from: patient Medical records reviewed: Notes from Infectious Disease Service Located within [facility] August 20 are reviewed. Patient spent 2 weeks on Levaquin after E coli bacteremia felt likely to be a prostatitis. No obvious additional source was found he did have CT scans and MRIs that time. Recommendations from that visit were to recheck CBC CRP blood cultures, urine with micro, if white count blood cultures are CRP are abnormal we will need to see infectious disease again Differential considered: Intra-abdominal infection, diskitis, epidural abscess, retroperitoneal abscess Exam documented above, pertinent findings include: Patient is tender with moving and twisting complains of pain in a bandlike distribution at flank level however none of this is reproducible with palpation. He is alert and appropriate otherwise Lab Test results independently reviewed as above. Pertinent findings: CBC shows leukocytosis at 11.5 with a slight left shift. No additional abnormality Chemistries are unremarkable with normal liver and kidney function C-reactive protein is elevated at 4.9 Procalcitonin is not elevated Imaging studies independently reviewed: In discussion with Dr. Rees of Infectious Disease in looking for source for his asymptomatic bacteria that might be causing his pain decision was made to do MRIs of the lumbar and thoracic spine with concern for diskitis or epidural abscess. CT scan of the abdomen and pelvis has also been reordered Consultations: Infectious Disease, Dr Corey. Discussion prior to arrival regarding concerns. Discussion after CT scan suggests T9-T10 endplate erosion for a diskitisosteomyelitis Her recommendation with these new findings were to proceed with a CT scans for further diagnostic purposes begin daptomycin. She and Dr. Merida, admitting hospitalist have coordinated to make sure that the MRI read is followed up and Dr. Chaudhry is notified of findings Treatments: Patient will be started on ceftriaxone, he is given oral Percocet and Toradol for pain control Re-evaluations: CT scan shows a new fluid containing lesion in the left kidney and MR protocol is recommended. I spoke with the MR tech who said that he could do the renal scan now with the lumbar and sacral scans otherwise we will need to wait a full 24 hours for contrast to be cleared. Kidney MR protocol is ordered. Discussion: 64-year-old gentleman with recent E coli bacteriuria uncertain source finished complete course of levofloxacin and within 2 weeks is having recurrent bacteremic symptoms. Source remains a an identified. Patient will need to be admitted, have reviewed with Dr. Merida from the hospitalist service. Imaging studies including CT scan and MRIs are currently pending. Findings reviewed with the patient questions are answered Discharge Plan Departure Patient Disposition: Admitted As Inpatient Clinical Impression: Fever Qualifiers: Fever type: unspecified Qualified Code(s): R50.9 - Fever, unspecified Discitis Qualifiers: Spinal region: thoracolumbar Qualified Code(s): M46.45 - Discitis, unspecified, thoracolumbar region Admit Date/Time: 09/09/24 16:04 Admit Provider: Jone Merida
[2024-09-09 10:12] LABS: Add Manual Diff / Slide Review NO; Basophils Absolute Auto 0 /uL (0-100); Basophils Percent Auto 0.3 % (0-2); Eosinophils Absolute Auto 0 /uL (0-450); Eosinophils Percent Auto 0.3 % (2-4); Hematocrit 37.3 % (41-53); Hemoglobin 12.7 g/dL (13.5-17.5); Lymphocytes Absolute Auto 1300 /uL (1100-4500); Mean Corpuscular Hemoglobin 28.8 PG (26-34); Mean Corpuscular Volume 84.8 fL (80-100); Monocytes Absolute Auto 1000 /uL (0-900); Monocytes Percent Auto 8.8 % (3-14); Neutrophils Absolute Auto 9200 /uL (1500-7000); Neutrophils Percent Auto 79.6 % (50-75); Platelet Count 275 X10^3/uL (150-400); Red Cell Distribution Width 14.4 % (11.6-14.8); White Blood Cell Count 11.5 X10^3/uL (4.5-11.0)
[2024-09-09 10:26] LABS: Alanine Aminotransferase 17 IU/L (<50); Albumin 4.4 g/dL (3.5-5.0); Albumin Globulin Ratio 1.1 (1.0-2.8); Alkaline Phosphatase 38 U/L (38-126); Aspartate Aminotransferase 22 IU/L (17-59); BUN Creatinine Ratio 12.6 (6-22); Bilirubin Total 0.7 mg/dL (0.2-1.3); Blood Urea Nitrogen 13 mg/dL (9-20); Calcium 9.3 mg/dL (8.4-10.2); Carbon Dioxide 28 mmol/L (22-32); Chloride 101 mmol/L (98-107); Estimated Glomerular Filt Rate > 60 mL/min (>60); Globulin 3.9 g/dL (1.7-4.1); Glucose 112 mg/dL (80-110); HEMOLYSIS < 15 (0-50); Potassium 4.4 mmol/L (3.4-5.1); Sodium 137 mmol/L (137-145); Total Protein 8.3 g/dL (6.3-8.2)
[2024-09-09 10:30] LABS: C-Reactive Protein Quant 4.9 mg/dL (<1.0)
[2024-09-09 10:43] LABS: Influenza A - CEPHEID Flu A NEGATIVE (NEGATIVE); Influenza B - CEPHEID Flu B NEGATIVE (NEGATIVE); Respiratory Syncytial Virus Negative (Negative)
[2024-09-09 10:44] LABS: COVID-19 CEPHEID 4-PLEX PCR Negative (Negative)
[2024-09-09 12:33] LABS: Creatine Kinase 74 U/L (55-170)
[2024-09-09 12:50] LABS: Procalcitonin 0.094 ng/mL (<0.5)
--- NOTE | 2024-09-09 15:34 | DI.CT.S_ITS ---
PROCEDURE: CT ABDOMEN PELVIS W CON INDICATIONS: Bacteremia unclear source, bandlike upper abdominal pain TECHNIQUE: After the administration of intravenous contrast, axial sections acquired from the lung bases to the pubic symphysis. Coronal and sagittal reformats were performed. For radiation dose reduction, the following was used: automated exposure control, adjustment of mA and/or kV according to patient size. COMPARISON: [facility], CT, CT ABDOMEN PELVIS W CON, 07/19/2024, 20:50. FINDINGS: Image quality: Diagnostic Lower chest: Scattered scarring and atelectasis. Similar subtle pleural thickening along the right costophrenic angle, as before Small hiatal hernia. Normal heart size. Liver: Unremarkable. Segment 7 granuloma again seen. Gallbladder and biliary system: Unremarkable, nondilated. Small duodenal diverticulum adjacent to the ampulla. Pancreas: No ductal dilation Spleen: Borderline enlarged at 13 centimeters Adrenals: No discrete nodules Kidneys: No hydronephrosis no obstructing calcified stone. In the left upper region, there is a 2.1 centimeter fluid containing lesion that was not present on CT from 07/19/2024. Internal density is heterogeneous. Some parts measure above fluid density. Vessels and lymph nodes: No abdominal aortic aneurysm. No pathologic lymph nodes by size criteria Bowel and peritoneum: No evidence of small bowel obstruction no pathologic ascites. The appendix is nondilated. Body wall: Small fat containing inguinal hernias. Small rectus diastasis. Pelvis: Bladder is unremarkable. The prostate is unremarkable on limited CT evaluation Bones: No acute or suspicious osseous findings. lumbosacral degenerative changes. Increased endplate erosive changes at T9-T10, with surrounding edematous fat stranding. IMPRESSION: Fluid containing lesion in the left kidney with heterogeneous internal density, new compared to 07/19/2024. This measures 2.1 centimeters (3/72). Differential includes interval appearance of a complicated cyst versus abscess. A renal protocol MRI is suggested to further evaluate for possible enhancement and diffusion restriction. T9-T10 endplate erosive changes suspicious for discitis/osteomyelitis. Other findings above. Dictated by: Maxime Kerns M.D. on 09/09/2024 at 16:18 Approved by: Maxime Kerns M.D. on 09/09/2024 at 16:25
--- NOTE | 2024-09-09 15:35 | DI.MRI.S_ITS ---
PROCEDURE: MR THORACIC SPINE WO/W CON INDICATIONS: Epidural abscess or diskitis, unexplained bacteremia, back p TECHNIQUE: Noncontrast sagittal T1 spin echo and T2 fast spin echo, sagittal STIR, axial T1 and T2 fast spin echo through the thoracic spine. After the administration of contrast, axial and sagittal T1 spin echo with fat saturation through the thoracic spine. COMPARISON: [facility], MR, MR LUMBAR SPINE WO/W CON, 09/09/2024, 17:32. [facility], CT, CT ABDOMEN PELVIS W CON, 09/09/2024, 15:43. FINDINGS: Image quality: Excellent. Alignment and curvature: There is normal bony alignment. Marrow: There is abnormal marrow signal within the T9 and T10 vertebral bodies with enhancement. Increased signal is also present within the disc space. Similar although less extensive abnormal signal is also noted at T11 and T12. There is prevertebral soft tissue thickening and enhancement from approximately T8 through T11. Abnormal enhancement is also present within the foramina at T9-10 bilaterally. Spinal cord: Visualized spinal cord is of normal signal and size. There is minimal appearance of thickened enhancement in the anterior epidural space at the level of T9-10. There is secondary spinal stenosis. Paraspinous soft tissues: Superior left renal mass corresponding to CT abnormality. Miscellaneous: Degenerative protrusion at T4-5. IMPRESSION: Abnormal signal and enhancement at the level of T9 and T10 with less prominent although similar appearance at T11 and T12. There is prominent paravertebral soft tissue enhancement as well as abnormal signal within the disc. Overall appearance is most suggestive discitis/osteomyelitis. Thin appearance of enhancement in the anterior epidural space at the level of T9-10 suspicious for very minimal developing epidural abscess. No secondary spinal stenosis. Left renal mass corresponding to CT abnormality. Please see CT report for further details. The above findings were discussed with Dr. Kash Merida on 09/09/2024 at 7:05 p.m.. Dictated by: Massiel Staley M.D. on 09/09/2024 at 18:55 Approved by: Massiel Staley M.D. on 09/09/2024 at 19:10
--- NOTE | 2024-09-09 15:35 | DI.MRI.S_ITS ---
PROCEDURE: MR LUMBAR SPINE WO/W CON INDICATIONS: Epidural abscess or diskitis, unexplained bacteremia, back p TECHNIQUE: Noncontrast sagittal T1 spin echo and T2 fast spin echo, sagittal STIR, axial T1 and T2 fast spin echo through the lumbar spine. In cases with scoliosis, additional coronal T2 fast spin echo may be performed. After the administration of contrast, sagittal and axial T1 spin echo with fat saturation through the lumbar spine. COMPARISON: [facility], MR, MR THORACIC SPINE WO/W CON, 09/09/2024, 17:08. [facility], CT, CT ABDOMEN PELVIS W CON, 09/09/2024, 15:43. FINDINGS: Image quality: Excellent. Alignment and curvature: There is normal bony alignment. Marrow: Marrow is of normal overall signal. Mild increased T1 and T2 signal though 4 likely hemangioma. Mild focus incompletely visualized increased signal within the T11 and T12 vertebral bodies corresponding to findings on MRI thoracic spine. No acute vertebral body compression fractures. No suspicious marrow enhancement. Spinal cord: Conus medullaris terminates at the L1 level. Visualized spinal cord demonstrates normal signal, without suspicious enhancement. Paraspinous soft tissues: Left renal mass corresponding to CT abnormality. T12-L1: No disc bulge, spinal stenosis or foraminal narrowing. L1-L2: No disc bulge, spinal stenosis or foraminal narrowing. Mild facet and ligamentum flavum hypertrophy. L2-L3: No disc bulge or spinal stenosis. Mild left foraminal narrowing with facet and ligamentum flavum hypertrophy. L3-L4: Mild disc bulge without spinal stenosis. [id number] bilateral foraminal narrowing with facet and ligamentum flavum hypertrophy. Minimal epidural lipomatosis. L4-L5: Minimal disc bulge without spinal stenosis. Moderate left and minimal right foraminal narrowing with facet and ligamentum flavum hypertrophy. L5-S1: Mild disc bulge without spinal stenosis. No foraminal narrowing. IMPRESSION: Multilevel degenerative changes. Abnormal signal partially visualized at T11 and T12 consistent with findings of discitis/osteomyelitis. Please see MRI thoracic spine report 09/09/2024. Left renal mass, correlating to CT exam. Dictated by: Massiel Staley M.D. on 09/09/2024 at 19:11 Approved by: Massiel Staley M.D. on 09/09/2024 at 19:16
[2024-09-09] MEDS: KETOROLAC 30 MG/ML VIAL 15 MG IV (15:57)
[2024-09-09] MEDS: cefTRIAXone 2,000 MG in SODIUM CHLORIDE 0.9% 100 ML 200 MG IV (15:57)
[2024-09-09] MEDS: OXYCODONE/ACETAMINOPHEN 5/325 TABLET 1 TAB PO (15:58)
[2024-09-09 16:40] LABS: Appearance Urine UA CLEAR; Bilirubin Urine UA NEGATIVE (NEGATIVE); Color Urine UA YELLOW; Glucose Urine UA NEGATIVE (Negative); Ketones Urine UA NEGATIVE (NEGATIVE); Leukocyte Esterase Urine UA NEGATIVE (NEGATIVE); Nitrite Urine UA NEGATIVE (Negative); Occult Blood Urine UA 2+ (Negative); Protein Urine UA NEGATIVE (Negative); Specific Gravity Urine UA <=1.005 (1.000-1.035); Urobilinogen Urine UA 0.2 E.U./dL (0.2); pH Urine UA 5.5 (4.5-8.0)
[2024-09-09 16:46] LABS: Urine Volume 10mL (spun)
[2024-09-09 16:47] LABS: Bacteria Urine None Seen; Culture Indicated Urine Cult Not Indicated; RBC Urine 1-5/HPF (0-5/HPF); Squamous Epithelial Cell Urine 1-5 /HPF (0-5/HPF); WBC Urine None Seen (0-5/HPF)
--- NOTE | 2024-09-09 17:04 | DI.MRI.S_ITS ---
PROCEDURE: MR ABDOMEN RENAL PROTOCOL INDICATIONS: abnormal CT TECHNIQUE: Coronal HASTE through abdomen and pelvis; axial 2D FLASH in- and [id number] (with and without fat saturation), and breath-hold T2 FSE from the hepatic dome to the bottom of the kidneys. Coronal HASTE MR urogram of kidneys and bladder. Dynamic coronal VIBE during IV gadolinium administration; postgadolinium axial VIBE or 2D FLASH with fat saturation from the hepatic dome through the kidneys. COMPARISON: None. FINDINGS: Image quality: Diagnostic. Kidneys and Ureters: Kidneys are symmetric, normal size. There are several subcentimeter cortical cysts bilaterally. Left upper pole 2.0 cm round T2 hyperintensity, less hyperintense compared to the other cysts, is noted within the cortex. It demonstrates homogeneously high T1 signal as well as a fluid fluid level on T2 axial imaging. Accounting for slight misregistration artifact, there is no enhancement during any phase postcontrast on subtraction imaging. No restricted diffusion. No suspicious enhancing lesions in either kidney. No hydronephrosis. The ureters, to the extent they are visualized appear normal. OTHER: Lung bases: No pleural or pericardial effusion. Liver: No solid mass. Gallbladder: No stones or wall thickening. Biliary ducts: No biliary dilation. Pancreas: Normal size and morphology without visible ductal dilatation or inflammation. Spleen: Borderline splenomegaly. Adrenal Glands: No adrenal nodules. Stomach and Bowel: Stomach and visible bowel loops are within normal limits. Partially imaged normal appendix. Peritoneum: No abnormal intraperitoneal fluid. No free air. Ventral Wall: No hernia. Abdominal Nodes: No retroperitoneal or mesenteric adenopathy by size criteria. Vessels: The abdominal aorta, IVC, and portal vein are of normal caliber. Bones: Irregular enhancement along the endplates at the T9-10 level with perivertebral enhancement. Osseous structures are otherwise normal. IMPRESSION: Left upper pole renal fluid collection demonstrates characteristics consistent with a hemorrhagic/proteinaceous cyst. No suspicious renal lesions. Findings compatible with discitis/ osteomyelitis again noted at the T9-10 level. Dictated by: Valencia Lozano M.D. on 09/10/2024 at 12:22 Approved by: Valencia Lozano M.D. on 09/10/2024 at 12:33
--- NOTE | 2024-09-09 17:25 | PC.NURSE ---
Pt arrived to room 208 at 1700. at bedside evaluating patient. He is taken to MRI at approximately 1710. Patient is A&OX4, VSS, afebrile Independent in room.
--- NOTE | 2024-09-09 17:31 | PM.HP.1 ---
History of Present Illness History of Present Illness Date Patient Seen: 09/09/24 Time Patient Seen: 17:31 Chief complaint: gram- bacteria hx - same symptoms Narrative: The patient was a 64-year-old male who was admitted for E coli bacteremia that have persisted for several weeks in mid June. He was discharged with sterile blood on levofloxacin on July 23. He follow up with Infectious Disease and had a 2 week course. This was going to initially before weeks but was stopped early because of musculoskeletal complaints that he attributed to his antibiotic. He did well for several weeks after this but has had Simmering lower back pain. The pain is lumbar and radiates to the left greater than the right and increases with positional movements. Because of persistence of pain in his back he presented to the ER today. He was also had low-grade fevers for the past several days and had night sweats as well. His 1st set of blood cultures and several weeks was today in the emergency department. His CRP was elevated and a CT of the abdomen and pelvis indicates possible T9-T10 endplate erosive changes concerning for diskitis. The case was discussed with Infectious Disease today, Dr. Corey. Ceftriaxone and blood was given and blood cultures were obtained prior. MRI of the spine and renal studies are ordered and happening this evening. [facility] Medical History GERD (gastroesophageal reflux disease) Asthma Surgical History Total knee replacement status (~2014) H/O shoulder surgery (~2002) Social History marital status: household members: spouse lives independently: Yes occupational status: previously employed Smoking Status: Never smoker alcohol intake: current substance use type: does not use Meds Home Medications and Allergies Home Medications Medication Instructions Recorded Confirmed Type acetaminophen 325 mg capsule 650 mg (2 x 325 mg) PO QID PRN 09/26/23 07/20/24 Rx (Tylenol) pain #60 caps ibuprofen 200 mg tablet 400 mg (2 x 200 mg) PO Q6H #60 tabs 09/26/23 07/20/24 Rx levofloxacin 750 mg tablet 750 mg PO DAILY #14 tabs 07/23/24 Rx Allergies Allergy/AdvReac Type Severity Reaction Status Date / Time morphine Allergy Verified 07/19/24 19:51 Review of Systems Review of Systems Narrative: All else reviewed and otherwise unremarkable except as noted in the history and physical. Exam Vital Signs (past 8 hours): - 09/09/24 09:45 09/09/24 13:21 09/09/24 13:22 Temperature 98.4 F Pulse Rate 86 72 Respiratory Rate 16 Blood Pressure 137/69 146/82 H Pulse Oximetry 96 95 Oxygen Delivery Method Room Air 09/09/24 13:22 09/09/24 13:30 09/09/24 13:30 Temperature Pulse Rate 68 72 Respiratory Rate Blood Pressure 150/87 H Pulse Oximetry 95 96 Oxygen Delivery Method 09/09/24 14:00 09/09/24 14:00 09/09/24 14:30 Temperature Pulse Rate 69 Respiratory Rate Blood Pressure 164/85 H 154/89 H Pulse Oximetry 96 Oxygen Delivery Method 09/09/24 14:30 09/09/24 15:00 09/09/24 15:00 Temperature Pulse Rate 68 61 Respiratory Rate Blood Pressure 135/63 Pulse Oximetry 96 96 Oxygen Delivery Method 09/09/24 15:30 09/09/24 15:31 09/09/24 15:31 Temperature Pulse Rate 69 69 Respiratory Rate Blood Pressure 183/79 H Pulse Oximetry 96 96 Oxygen Delivery Method Oxygen Delivery Method Room Air Narrative Exam Narrative: NAD, alert and oriented, fluent speech, calm. Normocephalic skull, EOMI, anicteric sclera, symmetric pupils. Oropharynx unremarkable, no droop. Neck supple, midline trachea, no adenopathy. Lungs clear, normal rate and effort. Heart regular, no murmur gallop or rub. Abdomen is soft, non distended and non tender. Extremities are free of edema. Skin is free of rash or lesions. Joints are not swollen or deformed. Judgment appears to be normal. He does have back stiffness and is tender on the left and right paraspinal areas in the lower thoracic spine. Objective Imaging Multiple studies:: Radiologist's impression: Chest x-ray: No acute cardiopulmonary abnormality is seen. Abdomen and pelvis CT: Fluid containing lesion in the left kidney with heterogeneous internal density, new compared to 07/19/2024. This measures 2.1 centimeters (). Differential includes interval appearance of a complicated cyst versus abscess. A renal protocol MRI is suggested to further evaluate for possible enhancement and diffusion restriction. T9-T10 endplate erosive changes suspicious for discitis/osteomyelitis. Other findings above. Labs 09/09/24 10:00 09/09/24 10:00 Labs: Laboratory Results - last 24 hr 09/09/24 09/09/24 09/09/24 09:55 10:00 16:05 WBC 11.5 H RBC 4.40 L Hgb 12.7 L Hct 37.3 L MCV 84.8 MCH 28.8 MCHC 34.0 RDW 14.4 Plt Count 275 Neut % (Auto) 79.6 H Lymph % (Auto) 11.0 L [place] % (Auto) 8.8 Eos % (Auto) 0.3 L Baso % (Auto) 0.3 Neut # (Auto) 9200 H Lymph # (Auto) 1300 [place] # (Auto) 1000 H Eos # (Auto) 0 Baso # (Auto) 0 Sodium 137 Potassium 4.4 Chloride 101 Carbon Dioxide 28 BUN 13 Creatinine 1.03 Estimated GFR > 60 BUN/Creatinine Ratio 12.6 Glucose 112 H Calcium 9.3 Total Bilirubin 0.7 AST 22 ALT 17 Alkaline Phosphatase 38 Total Creatine Kinase 74 C-Reactive Protein 4.9 H Total Protein 8.3 H Albumin 4.4 Globulin 3.9 Albumin/Globulin Ratio 1.1 Procalcitonin 0.094 Urine Color Yellow Urine Appearance Clear Urine pH 5.5 Ur Specific [place] <=1.005 Urine Protein Negative Urine Glucose (UA) Negative Urine Ketones Negative Urine Occult Blood 2+ H Urine Nitrate Negative Urine Bilirubin Negative Urine Urobilinogen 0.2 Ur Leukocyte Esterase Negative Urine RBC 1-5/hpf Urine WBC None seen Ur Squamous Epith Cells 1-5 /hpf Urine Bacteria None seen Ur Culture Indicated? Cult not indicated Vol Urine Centrifuged 10ml (spun) SARS-CoV-2 (PCR) Negative Influenza A (RT-PCR) Flu a negative Influenza B (RT-PCR) Flu b negative RSV (PCR) Negative Assessment & Plan Assessment & Plan narrative: 1. Probable T9-T10 diskitis, present on admission and active. 2. Probable bacteremia, present on admission and active. Plan: -ceftriaxone given, infectious disease is considering daptomycin. -MRI imaging of the spine is underway to rule out epidural abscess. If this appears to be diskitis without epidural abscess the patient will likely be transferred to [facility] for ongoing consultation and care with Infectious Disease collaboration. Inpatient status, anticipate 2 midnights of hospital necessity. Full resuscitation Proxy decision maker is . Time-Based Coding :: 45 min spent with patient and on the chart (including review of chart, obtaining history, exam, reviewing outside data, placing orders, documenting exam and treatment plan, and counseling patient) on 09/09. Quality MIPS - Admit I confirm the patient?s Advance Care Plan is present, Code status is documented, Surrogate decision maker is in patient?s record [If Yes, STOP here]: Yes The patient?s Advance Care plan is not present because I confirmed today that the patient does not wish or was not able to name a surrogate decision maker or provide an Advance Care Plan.: Yes
[2024-09-09 19:28] LABS: Creatine Kinase 75 U/L (55-170)
[2024-09-09] MEDS: ACETAMINOPHEN 325 MG TABLET 650 MG PO (21:35)
[2024-09-09] MEDS: HYDROMORPHONE 1 MG INJ IV (23:32)
[2024-09-10 01:49] VITALS: BP 119/72; PULSE 56; RESP 18; TEMP 36.2; O2SAT 96
[2024-09-10] MEDS: HYDROMORPHONE 1 MG INJ IV (03:58)
[2024-09-10] MEDS: ACETAMINOPHEN 325 MG TABLET 650 MG PO (03:59)
[2024-09-10 06:00] VITALS: BP 140/80; PULSE 65; RESP 18; TEMP 36.1; O2SAT 96
[2024-09-10 06:25] LABS: Add Manual Diff / Slide Review NO; Basophils Absolute Auto 0 /uL (0-100); Basophils Percent Auto 0.5 % (0-2); Eosinophils Absolute Auto 100 /uL (0-450); Eosinophils Percent Auto 0.9 % (2-4); Hemoglobin 11.9 g/dL (13.5-17.5); Lymphocytes Absolute Auto 1200 /uL (1100-4500); Lymphocytes Percent Auto 12.8 % (25-40); Mean Corpuscular HGB Conc 34.1 % (30-36); Mean Corpuscular Hemoglobin 28.9 PG (26-34); Mean Corpuscular Volume 84.8 fL (80-100); Monocytes Absolute Auto 1000 /uL (0-900); Monocytes Percent Auto 10.4 % (3-14); Neutrophils Absolute Auto 7100 /uL (1500-7000); Neutrophils Percent Auto 75.4 % (50-75); Platelet Count 249 X10^3/uL (150-400); Red Blood Cell Count 4.13 X10^6/uL (4.5-5.9); White Blood Cell Count 9.5 X10^3/uL (4.5-11.0)
[2024-09-10 06:35] LABS: BUN Creatinine Ratio 21.4 (6-22); Blood Urea Nitrogen 21 mg/dL (9-20); Calcium 9.1 mg/dL (8.4-10.2); Carbon Dioxide 27 mmol/L (22-32); Chloride 102 mmol/L (98-107); Estimated Glomerular Filt Rate > 60 mL/min (>60); Glucose 103 mg/dL (80-110); HEMOLYSIS < 15 (0-50); Potassium 4.4 mmol/L (3.4-5.1); Sodium 136 mmol/L (137-145)
[2024-09-10 08:00] VITALS: BP 121/79; PULSE 64; RESP 20; TEMP 36.3; O2SAT 96
[2024-09-10] MEDS: SODIUM CHLORIDE 0.9% FLUSH 10 ML IV (09:12)
[2024-09-10] MEDS: OXYCODONE/ACETAMINOPHEN 5/325 TABLET 1 TAB PO ×2 (09:12→15:31)
--- NOTE | 2024-09-10 10:30 | PM.PN.1 ---
Subjective Subjective Interval history: Subjective: He was having a lot of thoracic back pain and some spasm. No other neurologic symptoms. MRI of the T-spine did reveal a T9-T10 diskitis as well as possible early epidural abscess. Exam Vital Signs (past 8 hours): - 09/10/24 06:00 09/10/24 08:00 Temperature 96.9 F L 97.3 F L Pulse Rate 65 64 Respiratory Rate 18 20 Blood Pressure 140/80 121/79 Pulse Oximetry 96 96 Oxygen Flow Rate 0 0 Oxygen Delivery Method Room Air Oxygen Flow Rate 0 Narrative Exam Narrative: NAD, alert and oriented. Fluent speech. Lungs are clear, normal rate and effort. Heart is regular, no murmur gallop or rub. Abdomen is soft, non distended. Extremities are free of edema. Objective Labs 09/10/24 05:40 09/10/24 05:40 Labs: Laboratory Results - last 24 hr 09/09/24 09/09/24 09/09/24 09:55 10:00 16:05 WBC RBC Hgb Hct MCV MCH MCHC RDW Plt Count Neut % (Auto) Lymph % (Auto) [place] % (Auto) Eos % (Auto) Baso % (Auto) Neut # (Auto) Lymph # (Auto) [place] # (Auto) Eos # (Auto) Baso # (Auto) Sodium Potassium Chloride Carbon Dioxide BUN Creatinine Estimated GFR BUN/Creatinine Ratio Glucose Calcium Total Creatine Kinase 74 C-Reactive Protein 4.9 H Procalcitonin 0.094 Urine Color Yellow Urine Appearance Clear Urine pH 5.5 Ur Specific [place] <=1.005 Urine Protein Negative Urine Glucose (UA) Negative Urine Ketones Negative Urine Occult Blood 2+ H Urine Nitrate Negative Urine Bilirubin Negative Urine Urobilinogen 0.2 Ur Leukocyte Esterase Negative Urine RBC 1-5/hpf Urine WBC None seen Ur Squamous Epith Cells 1-5 /hpf Urine Bacteria None seen Ur Culture Indicated? Cult not indicated Vol Urine Centrifuged 10ml (spun) SARS-CoV-2 (PCR) Negative Influenza A (RT-PCR) Flu a negative Influenza B (RT-PCR) Flu b negative RSV (PCR) Negative 09/09/24 09/10/24 19:10 05:40 WBC 9.5 RBC 4.13 L Hgb 11.9 L Hct 35.0 L MCV 84.8 MCH 28.9 MCHC 34.1 RDW 14.0 Plt Count 249 Neut % (Auto) 75.4 H Lymph % (Auto) 12.8 L [place] % (Auto) 10.4 Eos % (Auto) 0.9 L Baso % (Auto) 0.5 Neut # (Auto) 7100 H Lymph # (Auto) 1200 [place] # (Auto) 1000 H Eos # (Auto) 100 Baso # (Auto) 0 Sodium 136 L Potassium 4.4 Chloride 102 Carbon Dioxide 27 BUN 21 H Creatinine 0.98 Estimated GFR > 60 BUN/Creatinine Ratio 21.4 Glucose 103 Calcium 9.1 Total Creatine Kinase 75 C-Reactive Protein Procalcitonin Urine Color Urine Appearance Urine pH Ur Specific [place] Urine Protein Urine Glucose (UA) Urine Ketones Urine Occult Blood Urine Nitrate Urine Bilirubin Urine Urobilinogen Ur Leukocyte Esterase Urine RBC Urine WBC Ur Squamous Epith Cells Urine Bacteria Ur Culture Indicated? Vol Urine Centrifuged SARS-CoV-2 (PCR) Influenza A (RT-PCR) Influenza B (RT-PCR) RSV (PCR) [facility] Medical History GERD (gastroesophageal reflux disease) Asthma Surgical History Total knee replacement status (~2014) H/O shoulder surgery (~2002) Social History marital status: household members: spouse lives independently: Yes occupational status: previously employed Smoking Status: Never smoker alcohol intake: current substance use type: does not use Assessment & Plan Assessment & Plan narrative: 1. T9-T10 diskitis and possible small early epidural abscess, present on admission and active. 2. History of recent E coli bacteremia in June, not present on admission are active. Plan: -discussed extensively with Infectious Disease and spine surgery at [facility], they recommend consideration of transfer to [place] for possible need of debridement and corpectomy if the infection fails to respond to medical treatment. has been contacted, images pushed, and a request for transfer made. Time-Based Coding :: [TOTAL MINUTES] spent with patient and on the chart (including review of chart, obtaining history, exam, reviewing outside data, placing orders, documenting exam and treatment plan, and counseling patient) on [DATE]. Quality VTE Deep Vein Thrombosis/Pulmonary Embolism Present on Admission: No
--- NOTE | 2024-09-10 10:55 | CM.DANOTE ---
Initial DCP Assessment Note Pt is a 64 yo male, resident of [place], recent e coli bacteremia infection, presents with signs and sx of infection, imaging done and appears to be Discitis/osteo, [place] ID being consulted and transfer to higher level of care being attempted for spinal surgeon and ID to follow. PCP: Noble ARMANDO Payer: [facility] Reviewed chart, pt discussed in multidisciplinary rounds this morning. Dr Merida attempting transfer to higher level of care. Met w/patient briefly, he was on his cell phone. introduced self and role. Patient lives independently with spouse. CM team will plan to follow clinical course closely, transfer being attempted. Anticipate patient will eventually discharge home w/spouse, whether from this hospital or an alternative one. MADAN Gonzalez Discharge Planning/Care Management CM Discharge Assessment Start: 09/10/24 10:52 Freq: Status: Active Protocol: Document 09/10/24 10:52 JARROD (Rec: 09/10/24 10:55 JARROD [id number]) Discharge Planning Assessment Assigned [employer] MADAN Winston DPOA/Assigned Designee Name Martinez Kerr, spouse Contact Information [phone] Advance Directives? No Advance Directives on File No History Provided By Patient,Medical Record Prior Living Arrangements House Household Members spouse Type of transporation used prior to Drives own vehicle admit Independent with ADL's Yes Is patient alert and oriented? Yes Comment N/A Comment Transfer for specialty, spinal surgeon, ID Discharge Plan Transfer to Higher Level of Care Transportation Arrangement ALS Referrals Initiated None needed
[2024-09-10] MEDS: CYCLOBENZAPRINE 10 MG TABLET PO (12:03)
[2024-09-10] MEDS: LIDOCAINE 5% PATCH 1 EACH TOP (12:03)
--- NOTE | 2024-09-10 12:10 | P.DS_ITS ---
History of Present Illness History of Present Illness Chief complaint: gram- bacteria hx - same symptoms Narrative: The patient was a 64-year-old male who was admitted for E coli bacteremia that have persisted for several weeks in mid June. He was discharged with sterile blood on levofloxacin on July 23. He follow up with Infectious Disease and had a 2 week course. This was going to initially before weeks but was stopped early because of musculoskeletal complaints that he attributed to his antibiotic. He did well for several weeks after this but has had Simmering lower back pain. The pain is lumbar and radiates to the left greater than the right and increases with positional movements. Because of persistence of pain in his back he presented to the ER today. He was also had low-grade fevers for the past several days and had night sweats as well. His 1st set of blood cultures and several weeks was today in the emergency department. His CRP was elevated and a CT of the abdomen and pelvis indicates possible T9-T10 endplate erosive changes concerning for diskitis. The case was discussed with Infectious Disease today, Dr. Corey. Ceftriaxone and blood was given and blood cultures were obtained prior. MRI of the spine and renal studies are ordered and happening this evening. Discharge Providers Provider Date of admission: 09/09/24 16:04 Discharge Date: 09/10/24 Primary care physician: Noble ARMANDO Provider Consults: ID phone consult Discharge provider: Jone Merida MD Summary Hospital Course Discharge Diagnosis: 1. T9-T10 diskitis and possible small early epidural abscess, present on admission and active. 2. History of recent E coli bacteremia in June, not present on admission are active. 3. Left renal lesion, present on admission and active. Hospital Course: The patient presented with thoracic back pain. Initial CT of the abdomen and pelvis was suggestive of a T9-T10 diskitis. This is confirmed with MRI of the T-spine which revealed a diskitis and possible T 9 and T10 osteomyelitis and a very small, early epidural abscess. The case was further discussed with spine surgery at [facility] with recommendations to see transfer to [facility]. A transfer request was made and I did speak with Dr. Gipson with spine surgery who recommended S transport directly to [facility] Emergency Department for further evaluation, and biopsy of this site for bacterial identification. The patient understands in his agreeable with this plan. Status at Discharge Cognitive/behavioral status at discharge: oriented Functional status at discharge: independent ambulation Overall status at discharge: patient is not back to baseline Time Spent with Patient Time spent: Greater than 30 minutes Exam Vital Signs (past 8 hours): - 09/10/24 06:00 09/10/24 08:00 Temperature 96.9 F L 97.3 F L Pulse Rate 65 64 Respiratory Rate 18 20 Blood Pressure 140/80 121/79 Pulse Oximetry 96 96 Oxygen Flow Rate 0 0 Oxygen Delivery Method Room Air Oxygen Flow Rate 0 Narrative Exam Narrative: NAD, alert and oriented. Fluent speech. Lungs are clear, normal rate and effort. Heart is regular, no murmur gallop or rub. Abdomen is soft, non distended. Extremities are free of edema. No weakness of legs or bowel or bladder symptoms. Objective Imaging Multiple studies:: Radiologist's impression: Renal MRI read is pending. Thoracic spine MRI: IMPRESSION: Abnormal signal and enhancement at the level of T9 and T10 with less prominent although similar appearance at T11 and T12. There is prominent paravertebral soft tissue enhancement as well as abnormal signal within the disc. Overall appearance is most suggestive discitis/osteomyelitis. Thin appearance of enhancement in the anterior epidural space at the level of T9-10 suspicious for very minimal developing epidural abscess. No secondary spinal stenosis. Left renal mass corresponding to CT abnormality. Please see CT report for further details. The above findings were discussed with Dr. Kash Merida on 09/09/2024 at 7:05 p.m.. Lumbar spine MRI: [place] [address] Magnetic Resonance Report Signed Patient: Kobe Kerr MR#: [id number] : 1960 Acct:[id number] Age/Sex: 64 / M Date of Service: 09/09/24 Loc: 208-1 Accession Number: [id number] Procedure: MR lumbar spine wo/w con Ordering Provider: Mayi Rosenberg MD PROCEDURE: MR LUMBAR SPINE WO/W CON INDICATIONS: Epidural abscess or diskitis, unexplained bacteremia, back p TECHNIQUE: Noncontrast sagittal T1 spin echo and T2 fast spin echo, sagittal STIR, axial T1 and T2 fast spin echo through the lumbar spine. In cases with scoliosis, additional coronal T2 fast spin echo may be performed. After the administration of contrast, sagittal and axial T1 spin echo with fat saturation through the lumbar spine. COMPARISON: [facility], MR, MR THORACIC SPINE WO/W CON, 09/09/2024, 17:08. [facility], CT, CT ABDOMEN PELVIS W CON, 09/09/2024, 15:43. FINDINGS: Image quality: Excellent. Alignment and curvature: There is normal bony alignment. Marrow: Marrow is of normal overall signal. Mild increased T1 and T2 signal though 4 likely hemangioma. Mild focus incompletely visualized increased signal within the T11 and T12 vertebral bodies corresponding to findings on MRI thoracic spine. No acute vertebral body compression fractures. No suspicious marrow enhancement. Spinal cord: Conus medullaris terminates at the L1 level. Visualized spinal cord demonstrates normal signal, without suspicious enhancement. Paraspinous soft tissues: Left renal mass corresponding to CT abnormality. T12-L1: No disc bulge, spinal stenosis or foraminal narrowing. L1-L2: No disc bulge, spinal stenosis or foraminal narrowing. Mild facet and ligamentum flavum hypertrophy. L2-L3: No disc bulge or spinal stenosis. Mild left foraminal narrowing with facet and ligamentum flavum hypertrophy. L3-L4: Mild disc bulge without spinal stenosis. [id number] bilateral foraminal narrowing with facet and ligamentum flavum hypertrophy. Minimal epidural lipomatosis. L4-L5: Minimal disc bulge without spinal stenosis. Moderate left and minimal right foraminal narrowing with facet and ligamentum flavum hypertrophy. L5-S1: Mild disc bulge without spinal stenosis. No foraminal narrowing. IMPRESSION: Multilevel degenerative changes. Abdomen and pelvis CT: FINDINGS: Image quality: Diagnostic Lower chest: Scattered scarring and atelectasis. Similar subtle pleural thickening along the right costophrenic angle, as before Small hiatal hernia. Normal heart size. Liver: Unremarkable. Segment 7 granuloma again seen. Gallbladder and biliary system: Unremarkable, nondilated. Small duodenal diverticulum adjacent to the ampulla. Pancreas: No ductal dilation Spleen: Borderline enlarged at 13 centimeters Adrenals: No discrete nodules Kidneys: No hydronephrosis no obstructing calcified stone. In the left upper region, there is a 2.1 centimeter fluid containing lesion that was not present on CT from 07/19/2024. Internal density is heterogeneous. Some parts measure above fluid density. Vessels and lymph nodes: No abdominal aortic aneurysm. No pathologic lymph nodes by size criteria Bowel and peritoneum: No evidence of small bowel obstruction no pathologic ascites. The appendix is nondilated. Body wall: Small fat containing inguinal hernias. Small rectus diastasis. Pelvis: Bladder is unremarkable. The prostate is unremarkable on limited CT evaluation Bones: lumbosacral degenerative changes. Increased endplate erosive changes at T9-T10, with surrounding edematous fat stranding. (a report correction was made to delete no acute or suspicious osseous findings under bones in the findings section) IMPRESSION: Fluid containing lesion in the left kidney with heterogeneous internal density, new compared to 07/19/2024. This measures 2.1 centimeters (). Differential includes interval appearance of a complicated cyst versus abscess. A renal protocol MRI is suggested to further evaluate for possible enhancement and diffusion restriction. T9-T10 endplate erosive changes suspicious for discitis/osteomyelitis. Other findings above. Chest x-ray: No acute cardiopulmonary abnormality is seen. Labs 09/10/24 05:40 09/10/24 05:40 Labs: Laboratory Results - last 24 hr 09/09/24 09/09/24 09/09/24 10:00 16:05 19:10 WBC RBC Hgb Hct MCV MCH MCHC RDW Plt Count Neut % (Auto) Lymph % (Auto) [place] % (Auto) Eos % (Auto) Baso % (Auto) Neut # (Auto) Lymph # (Auto) [place] # (Auto) Eos # (Auto) Baso # (Auto) Sodium Potassium Chloride Carbon Dioxide BUN Creatinine Estimated GFR BUN/Creatinine Ratio Glucose Calcium Total Creatine Kinase 74 75 Procalcitonin 0.094 Urine Color Yellow Urine Appearance Clear Urine pH 5.5 Ur Specific [place] <=1.005 Urine Protein Negative Urine Glucose (UA) Negative Urine Ketones Negative Urine Occult Blood 2+ H Urine Nitrate Negative Urine Bilirubin Negative Urine Urobilinogen 0.2 Ur Leukocyte Esterase Negative Urine RBC 1-5/hpf Urine WBC None seen Ur Squamous Epith Cells 1-5 /hpf Urine Bacteria None seen Ur Culture Indicated? Cult not indicated Vol Urine Centrifuged 10ml (spun) 09/10/24 05:40 WBC 9.5 RBC 4.13 L Hgb 11.9 L Hct 35.0 L MCV 84.8 MCH 28.9 MCHC 34.1 RDW 14.0 Plt Count 249 Neut % (Auto) 75.4 H Lymph % (Auto) 12.8 L [place] % (Auto) 10.4 Eos % (Auto) 0.9 L Baso % (Auto) 0.5 Neut # (Auto) 7100 H Lymph # (Auto) 1200 [place] # (Auto) 1000 H Eos # (Auto) 100 Baso # (Auto) 0 Sodium 136 L Potassium 4.4 Chloride 102 Carbon Dioxide 27 BUN 21 H Creatinine 0.98 Estimated GFR > 60 BUN/Creatinine Ratio 21.4 Glucose 103 Calcium 9.1 Total Creatine Kinase Procalcitonin Urine Color Urine Appearance Urine pH Ur Specific [place] Urine Protein Urine Glucose (UA) Urine Ketones Urine Occult Blood Urine Nitrate Urine Bilirubin Urine Urobilinogen Ur Leukocyte Esterase Urine RBC Urine WBC Ur Squamous Epith Cells Urine Bacteria Ur Culture Indicated? Vol Urine Centrifuged [facility] Medical History GERD (gastroesophageal reflux disease) Asthma Surgical History Total knee replacement status (~2014) H/O shoulder surgery (~2002) Social History marital status: household members: spouse lives independently: Yes occupational status: previously employed Smoking Status: Never smoker alcohol intake: current substance use type: does not use Discharge Assessment & Plan Assessment and Plan Assessment: 1. T9-T10 diskitis and possible small early epidural abscess, present on admission and active. 2. History of recent E coli bacteremia in June, not present on admission are active. 3. Left renal lesion, present on admission and active. Plan of Treatment: S ambulance transfer to [facility] as authorized, Dr. Gipson of spine surgery is the accepting physician. Discharge Plan Discharge Plan Patient Disposition: [facility] Other facility: [facility]. Under care of provider: Dr Gipson Provider Discharge Comment: Stable for transfer by S ambulance for evaluation of diskitis at T9-T10. Discharge orders & Medications Prescriptions: No Action ibuprofen 200 mg tablet 400 mg PO Q6H Qty: 60 0RF acetaminophen [Tylenol] 325 mg capsule 650 mg PO QID PRN (Reason: pain) Qty: 60 0RF Follow up/Referrals: ProviderNoble [Primary Care Provider] - Discharge Health Status Multidrug resistant organism: No MDRO Diet/Activity/Treatments Diet: Regular Liquid consistency: Normal/Thin Food texture: Regular Discharge Data Primary Care Provider: Noble Martinez VTE Deep Vein Thrombosis/Pulmonary Embolism Present on Admission: No MIPS - DC The patient has a history of heart transplant or Left Ventricular Assist Device (LVAD). If yes, STOP here.: No The patient has current or prior documentation of left ventricular ejection fraction (LVEF) less than or equal to 40%, or moderate or severely depressed left ventricular systolic function.: No
--- NOTE | 2024-09-10 16:14 | PC.NURSE ---
Pt is dressed and ready for transport to [facility] via ambulance. IV intact. Report given. Pt out via stretcher by ambulance personnel with all belongings.
== END 2024-09-10 16:15 | disposition short-term general hospital (02) | DRG 551 ==
LOC: ED 09:54 → AC 16:04
PROVIDERS: Admitting Provider Hospitalist; Emergency Provider Emergency Medicine; Referring Provider Emergency Medicine; Visit Provider Hospitalist
DX: M46.44 Discitis, unspecified, thoracic region (principal); G06.1 Intraspinal abscess and granuloma; M46.24 Osteomyelitis of vertebra, thoracic region; N28.9 Disorder of kidney and ureter, unspecified; Z86.19 Personal history of other infectious and parasitic diseases
CPT/HCPCS: 0241U; 36415; 71045; 72157; 72158; 74177; 74183; 80048; 80053; 81001; 82550; 84145; 85025; 86140; 87040; 96365; 96375; 99284; 99285; A9579; J0696; J0878; J1171; J1885; Q9967

== ENCOUNTER → 2024-09-26 07:26 | Outpatient (CLI) | payer MEDICARE, OTHER, SELFPAY ==
[2024-09-09 18:48] VITALS: BMI 34.8
--- NOTE | 2024-09-26 07:27 | DI.MRI.S_ITS ---
PROCEDURE: MR THORACIC SPINE WO/W CON INDICATIONS: Osteomyelitis of vertebra, site unspecified TECHNIQUE: Noncontrast sagittal T1 spin echo and T2 fast spin echo, sagittal STIR, axial T1 and T2 fast spin echo through the thoracic spine. After the administration of contrast, axial and sagittal T1 spin echo with fat saturation through the thoracic spine. COMPARISON: [facility], , MR THORACIC SPINE WO/W CON, 09/09/2024, 17:08. FINDINGS: Image quality: Excellent. Alignment and curvature: There is normal bony alignment. Marrow: Again seen abnormal marrow signal within the T9 and T10 vertebral bodies with associated enhancement. Destructive changes at the endplates with edema in the disc space. This is similar appearance to prior. Again seen prevertebral soft tissue thickening and enhancement spanning approximately T8 through T11. Mild signal abnormality involving the T11-T12 endplates anteriorly, similar to prior. Spinal cord: Visualized spinal cord is of normal signal and size, without abnormal enhancement. Similar appearance of minimal thickening and enhancement within the anterior epidural space at T9-T10. No significant spinal canal stenosis at this level. Paraspinous soft tissues: No paravertebral masses or abnormal enhancement. Small right pleural effusion. Miscellaneous: Central canal and foramina appear widely patent at all scanned levels. IMPRESSION: Again seen destructive endplate changes at T9-T10 with signal abnormality and enhancement within the disc and T9 and T10 vertebral bodies. Findings are consistent with discitis osteomyelitis. Mild thickening and enhancement of the anterior epidural space concerning for mild epidural abscess. These findings are overall similar in appearance compared to prior. Mild signal abnormality involving the anterior T11-T12 endplates with mild disc edema. A more mild discitis osteomyelitis is in the differential. Dictated by: Manolo Martines M.D. on 09/26/2024 at 10:03 Approved by: Manolo Martines M.D. on 09/26/2024 at 10:10
== END ==
PROVIDERS: Referring Provider Internal Medicine Infectious Disease; Visit Provider Internal Medicine Infectious Disease
DX: M46.24 Osteomyelitis of vertebra, thoracic region (principal)
CPT/HCPCS: 72157; A9579

== ENCOUNTER → 2024-11-12 15:32 | Outpatient (CLI) | payer MEDICARE, OTHER, SELFPAY ==
[2024-09-09 18:48] VITALS: BMI 34.8
--- NOTE | 2024-11-12 15:34 | DI.MRI.S_ITS ---
PROCEDURE: MR THORACIC SPINE WO/W CON INDICATIONS: VERTEBRAL OSTEOMYELITIS TECHNIQUE: Noncontrast sagittal T1 spin echo and T2 fast spin echo, sagittal STIR, axial T1 and T2 fast spin echo through the thoracic spine. After the administration of contrast, axial and sagittal T1 spin echo with fat saturation through the thoracic spine. COMPARISON: [facility], MR, MR ABDOMEN RENAL PROTOCOL, 09/09/2024, 17:46. [facility], CT, CT CHEST W CON, 07/01/2024, 0:15. [facility], MR, MR THORACIC SPINE WO/W CON, 09/26/2024, 7:41. FINDINGS: Image quality: Excellent. Slightly exaggerated kyphosis of the thoracic spine. Again seen is diffuse marrow edema with endplate destruction at T9-T10, grossly unchanged from prior exam. Mild anterior prevertebral soft tissue phlegmon, unchanged. No associated drainable fluid collection. No epidural phlegmon or epidural abscess. Multilevel disc bulge and disc desiccation. Core signal: Unremarkable Central canal stenosis: Mild at T4-5, secondary to disc bulge. Right neural foraminal stenosis: Mild at T9-10. Left neural foraminal stenosis: Mild at T9-10. Hemorrhagic cyst in the left kidney. Visualized thoracic aorta is unremarkable. IMPRESSION: 1. Discitis/osteomyelitis at T9-T10 with anterior prevertebral phlegmon, unchanged from prior exam. Dictated by: Jacquie Borrego M.D. on 11/12/2024 at 17:16 Approved by: Jacquie Borrego M.D. on 11/12/2024 at 17:29
== END ==
PROVIDERS: Referring Provider Internal Medicine Infectious Disease; Visit Provider Internal Medicine Infectious Disease
DX: M46.24 Osteomyelitis of vertebra, thoracic region (principal); M48.04 Spinal stenosis, thoracic region; M51.34 Other intervertebral disc degeneration, thoracic region; N28.1 Cyst of kidney, acquired
CPT/HCPCS: 72157; A9579

== ENCOUNTER → 2025-03-03 12:38 | Outpatient (CLI) | payer MEDICARE, OTHER, SELFPAY ==
[2024-09-09 18:48] VITALS: BMI 34.8
--- NOTE | 2025-03-03 | DI.MRI.S_ITS ---
PROCEDURE: MR THORACIC SPINE WO/W CON INDICATIONS: Vertebral osteomyelitis TECHNIQUE: Noncontrast sagittal T1 spin echo and T2 fast spin echo, sagittal STIR, axial T1 and T2 fast spin echo through the thoracic spine. After the administration of contrast, axial and sagittal T1 spin echo with fat saturation through the thoracic spine. COMPARISON: [facility], , MR THORACIC SPINE WO/W CON, 11/12/2024, 15:46. FINDINGS: Image quality: Excellent. Alignment and curvature: There is normal bony alignment. Marrow: Significant improvement/resolution in marrow edema enhancement at the T9-T10 level. Resolution of prevertebral phlegmon. Spinal cord: Visualized spinal cord is of normal signal and size, without abnormal enhancement. Paraspinous soft tissues: No paravertebral masses or abnormal enhancement. Left renal hemorrhagic cyst is redemonstrated. Miscellaneous: Mild multilevel disc desiccation with several small disc bulges. Mild central canal stenosis at T4-T5 secondary to small disc bulge. Facet arthropathy is present. Mild bilateral neural foraminal stenosis at T9-T10 is stable. IMPRESSION: Significant improvement/resolution of marrow edema and enhancement at the T9-T10 level, consistent with resolving discitis osteomyelitis. Resolution of prevertebral phlegmon. Dictated by: Manolo Martines M.D. on 03/03/2025 at 14:17 Approved by: Manolo Martines M.D. on 03/03/2025 at 14:22
== END ==
LOC: MRI 12:40
PROVIDERS: Referring Provider Internal Medicine Infectious Disease; Visit Provider Internal Medicine Infectious Disease
DX: M46.24 Osteomyelitis of vertebra, thoracic region (principal); N28.1 Cyst of kidney, acquired; M47.814 Spondylosis without myelopathy or radiculopathy, thoracic region; M48.04 Spinal stenosis, thoracic region; M51.34 Other intervertebral disc degeneration, thoracic region
CPT/HCPCS: 72157